=== PATIENT | male | born 1970 | race Caucasian/White ===

== ENCOUNTER 2023-08-30 12:10 | Inpatient (IN) ==
--- NOTE | 2023-08-30 12:20 | ED Triage Note ---
Date of Service August 30, 2023 History of Present Illness This patient was briefly evaluated while in triage. An abbreviated physical exam was performed. This patient is a 53-year-old Male who presents to the ED for evaluation of weakness, shortness of breath and chest pain last night. The patient reports that over the past 10 days, he has noticed the weakness and shortness of breath. He started to develop left-sided chest discomfort last evening. The patient reports that when he is exerting himself, the pain also seems to radiate into both shoulders and his neck. Upon further questioning, the patient has had some mild recent nausea, and diaphoresis at nighttime. Patient does take medicine for blood pressure. His father had a heart attack in his mid 50s. The patient reports that his last cholesterol check approximately 1.5 years ago was normal. The patient rates his discomfort a 5 out of 10. Physical Exam CONSTITUTIONAL: Healthy and well nourished. Patient does not appear in any acute distress. HEENT: No scleral icterus or conjunctival injection. NECK: Full active range of motion without discomfort. No JVD or carotid bruits. RESPIRATORY: Clear to auscultation bilaterally with no wheezing, crackles, rhonchi or stridor. CARDIOVASCULAR: Regular rate and rhythm with no murmurs, rubs or gallops. INTEGUMENTARY: No rash or other significant dermatologic conditions noted. HEMATOLOGIC: No ecchymosis or petechiae. PSYCHIATRIC: Positive affect. Initial orders for labs and / or imaging were placed and patient was placed in the waiting area until a bed is available. Please see further documentation for the full ED course.
[2023-08-30] MEDS ORDERED: SODIUM CHLORIDE 0.9% 1,000 ML IV ONE (12:25)
--- NOTE | 2023-08-30 12:28 | Emergency Department Note ---
Impression & Plan Anemia ADMIT ED Provider Note HPI: History obtained from patient The patient is a 53-year-old gentleman who presents emergency department with a chief complaint of shortness of breath with exertion. Patient states the symptoms seem to have been occurring more frequently over just the past 10 days. Patient tells me that he has been having some fatigue, he also describes nonspecific chest "tightness" that occurs at times and spontaneously resolves. Chest tightness is not associated with exertion and he did experience this last night. On arrival here to the ED the patient is hypertensive at 159/90, heart rate is 107, patient is saturating well on room air, denies any current chest pain or tightness, denies any abdominal pain, denies any current nausea. ROS: - Per HPI Differential Diagnosis: Acute CHF exacerbation with exertional dyspnea, ACS, pulmonary embolism, symptomatic anemia, amongst other potential pathologies. *Outpatient medications and allergy history reviewed. *Pertinent external medical records reviewed - PE: General: Alert HEENT: Normocephalic, trachea midline Eyes: Extraocular eye movement is intact, no scleral erythema Pulmonary: Clear to auscultation bilaterally, no wheezing Cardio: Regular rate and rhythm GI: Abdomen is soft to palpation, rectal examination performed with RN at the bedside shows evidence of external hemorrhoids without gross bleeding, occult stool testing is : No suprapubic tenderness MSK: No evidence of trauma or malformation of the extremities, no edema Skin: No evidence of rash Neuro: Alert, no focal deficits Psychiatric: Cooperative 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 Lab work shows no leukocytosis, hemoglobin is noted to be low at 6.6, MCV is 69.5, platelet count is normal, D-dimer is elevated at 1680, CMP shows mild hyponatremia at 131, potassium 3.4, troponin is elevated at 357. Patient denies any chest pain, EKG shows sinus tachycardia without any acute ischemic changes per my interpretation. Low suspicion for ACS. Chest x-ray does not show any evidence of acute process. Given low hemoglobin, occult stool testing was performed and is positive. Patient states he has a history of internal hemorrhoids. This could possibly be the source of his low hemoglobin, also in consideration would be iron deficiency given that the patient has had microcytic anemia and tells me in the past he was on iron supplementation for anemia. CT angiography of the chest was obtained given elevated D-dimer, this does not show any evidence of pulmonary embolism. Patient denies any abdominal pain and his abdomen is soft and nontender on my exam, no indication for CT imaging at this time. Patient was consented for 2 units packed red blood cells, I suspect that his troponin is elevated secondary to symptomatic anemia/demand ischemia. I discussed the patient's presentation with the on-call midlevel provider for [facility], Diamond Lanier PA-C, and the patient was placed for admission in stable condition to the service of Dr. Christie. Consultants/Discussions held with other healthcare providers: -Hospitalist service, Dr. Christie Disposition discussion held by myself with: - Patient * CRITICAL CARE TIME: ( 47 ) minutes -Management and stabilization of patient with symptomatic anemia with hemoglobin less than 7.0 requiring packed red blood cell transfusion in the ED, time spent at the bedside, interpretation of diagnostic studies, discussion with other healthcare providers and arrangement of admission Diagnosis: 1. Symptomatic anemia, acute, microcytic 2. Exertional dyspnea, acute 3. Elevated high-sensitivity troponin level, acute 4. Elevated D-dimer 5. Hyponatremia, acute Disposition: Admission Miguel Ro DO Emergency Medicine Past Med/Surg History Medical History (Updated 08/30/23 @ 17:34 by Miguel Ro DO) Gout MDD (major depressive episode), single episode, severe, no psychosis Alcoholism FERNANDO (generalized anxiety disorder) HTN (hypertension) Surgical History (Updated 08/30/23 @ 16:20 by Rosita Lanier PA-C) No pertinent past surgical history Family History (Updated 08/30/23 @ 16:20 by Rosita Lanier PA-C) Father Coronary heart disease Mother Thyroid disorder Social History (Updated 08/30/23 @ 17:12 by Rosita Lanier PA-C) Smoking Status: Former smoker Tobacco Type: Smokeless Tobacco (Dip or Chew) Hx Alcohol Use: Yes (35-45 standard drinks per week) Alcohol type: beer, wine and hard liquor Hx Substance Use: Yes Prescribed Medications: Marijuana Preferred Language: Indonesian Feels Safe at Home: Yes Allergies Allergies Allergy/AdvReac Type Severity Reaction Status Date / Time No Known Allergies Allergy Unverified 08/30/23 13:49 Home Meds Home Medications Medication Instructions Recorded Confirmed citalopram 40 mg tablet 40 mg PO QAM 08/30/23 08/30/23 hydrochlorothiazide 25 mg tablet 25 mg PO QAM 08/30/23 08/30/23 ibuprofen 200 mg tablet (Advil) 200 mg PO Q6H PRN Pain 08/30/23 08/30/23 lisinopril 40 mg tablet 40 mg PO QAM 08/30/23 08/30/23 Results & Data (ED) Vital Signs Vital Signs - 24 hr 08/30/23 12:14 08/30/23 12:32 08/30/23 12:32 Temperature 36.6 C Temperature Source Temporal Artery Scan Pulse Rate 107 H 93 H Pulse Rate [Apical] 93 H Pulse Rhythm Pulse Strength Respiratory Rate 22 18 Respiratory Effort / Characteristics Non-Labored Respiratory Depth Normal Blood Pressure 159/90 H Blood Pressure [Left Arm] 147/78 H Blood Pressure Mean 113 Blood Pressure Mean [Left Arm] 101 Pulse Oximetry 100 96 Oxygen Delivery Method Room Air Sepsis Recent Fever Within 48 Hours No Sepsis New/Unexplained Change in Mental Status N/A Sepsis Action Taken by Nursing No Action Required 08/30/23 12:32 08/30/23 13:01 08/30/23 14:03 Temperature Temperature Source Pulse Rate 95 H Pulse Rate [Apical] 92 H 86 Pulse Rhythm Pulse Strength Respiratory Rate 18 18 Respiratory Effort / Characteristics Non-Labored Respiratory Depth Normal Blood Pressure Blood Pressure [Left Arm] 122/66 138/86 Blood Pressure Mean Blood Pressure Mean [Left Arm] 84 103 Pulse Oximetry 97 Oxygen Delivery Method Room Air Room Air Sepsis Recent Fever Within 48 Hours Sepsis New/Unexplained Change in Mental Status Sepsis Action Taken by Nursing 08/30/23 15:32 08/30/23 15:54 08/30/23 16:09 Temperature 36.9 C 36.9 C 36.8 C Temperature Source Oral Oral Oral Pulse Rate 87 88 91 H Pulse Rate [Apical] Pulse Rhythm Pulse Strength Respiratory Rate 18 16 14 Respiratory Effort / Characteristics Respiratory Depth Blood Pressure 137/77 139/72 126/73 Blood Pressure [Left Arm] Blood Pressure Mean 97 94 90 Blood Pressure Mean [Left Arm] Pulse Oximetry 100 100 100 Oxygen Delivery Method Sepsis Recent Fever Within 48 Hours Sepsis New/Unexplained Change in Mental Status Sepsis Action Taken by Nursing 08/30/23 16:31 08/30/23 16:39 Temperature 36.9 C Temperature Source Oral Pulse Rate 96 H 93 H Pulse Rate [Apical] Pulse Rhythm Regular Pulse Strength Normal Respiratory Rate 18 Respiratory Effort / Characteristics Respiratory Depth Blood Pressure 165/83 H Blood Pressure [Left Arm] Blood Pressure Mean 110 Blood Pressure Mean [Left Arm] Pulse Oximetry 100 Oxygen Delivery Method Sepsis Recent Fever Within 48 Hours Sepsis New/Unexplained Change in Mental Status Sepsis Action Taken by Nursing Laboratory Data 08/30/23 12:29 08/30/23 12:30 Lab Results 08/30/23 08/30/23 08/30/23 Range/Units 12:29 12:30 14:17 WBC 4.89 (4.8-10.8) K/ul RBC 3.21 L (4.70-6.10) M/uL Hgb 6.6 L* (14.0-18.0) g/dl Hct 22.3 L (42.0-52.0) % MCV 69.5 L (80.0-100.0) fL MCH 20.6 L (25.0-34.0) pg MCHC 29.6 L (32.0-36.0) g/dL RDW Std Deviation 40.9 (36.4-46.3) fL RDW Coeff of [place] 16.1 H (11.5-14.5) % Plt Count 304 (130-400) K/uL MPV 9.3 L (9.4-12.4) fL Immature Gran % (Auto) 0.4 % Neut % (Auto) 69.5 % Lymph % (Auto) 16.6 % Cata[place] % (Auto) 12.7 % Eos % (Auto) 0.6 % Baso % (Auto) 0.2 % Neut # (Auto) 3.40 (1.40-6.50) K/uL Lymph # (Auto) 0.81 L (1.20-3.40) K/uL Cata[place] # (Auto) 0.62 H (0.11-0.59) K/uL Eos # (Auto) 0.03 (0.00-0.50) K/uL Baso # (Auto) 0.01 (0.00-0.20) K/uL Immature Gran # (Auto) 0.02 (0.01-0.20) K/uL Polychromasia 2+ Microcytosis Present PT 11.4 (9.0-12.0) Seconds INR 1.0 (0.9-1.1) APTT 24.6 (21.0-31.0) Seconds PTT Ratio 0.9 D-Dimer 1680 H* (0-500) ug/L FEU Sodium 131 L (136-145) mmol/L Potassium 3.4 L (3.5-5.1) mmol/L Chloride 96 L (98-107) mmol/L Carbon Dioxide 26 (21-32) mmol/L Anion Gap 9 (3-11) BUN 12 (6-23) mg/dl Creatinine 0.89 (0.6-1.4) mg/dl Est Cr Clr Drug Dosing 103.4 ml/min Est GFR ( Amer) 113.9 ml/min Est GFR (Non-Af Amer) 98.3 ml/min BUN/Creatinine Ratio 13.5 (10-20) Glucose 104 H (70-99(Fasting)) mg/dl Calcium 9.8 (8.6-10.3) mg/dl Magnesium 2.0 (1.7-2.4) mg/dl Total Bilirubin 0.4 (0.2-1.0) mg/dl AST 26 (13-39) U/L ALT 55 H (7-52) U/L Alkaline Phosphatase 70 (34-104) U/L Troponin I High Sens 357.8 H* 380.6 H* (0-20) pg/ml B-Natriuretic Peptide 28 (0-100) pg/ml Total Protein 8.2 (6.0-8.3) gm/dl Albumin 4.8 (3.4-5.0) gm/dl Globulin 3.4 (2.5-4.0) gm/dl Albumin/Globulin Ratio 1.4 (0.9-2) Lipase 30 (11-82) U/L TSH 1.237 (0.300-4.500) uIu/ml Blood Type O Positive Blood Type Recheck Antibody Screen NEGATIVE Crossmatch See Detail 08/30/23 Range/Units 14:20 WBC (4.8-10.8) K/ul RBC (4.70-6.10) M/uL Hgb (14.0-18.0) g/dl Hct (42.0-52.0) % MCV (80.0-100.0) fL MCH (25.0-34.0) pg MCHC (32.0-36.0) g/dL RDW Std Deviation (36.4-46.3) fL RDW Coeff of Glenis (11.5-14.5) % Plt Count (130-400) K/uL MPV (9.4-12.4) fL Immature Gran % (Auto) % Neut % (Auto) % Lymph % (Auto) % [place] % (Auto) % Eos % (Auto) % Baso % (Auto) % Neut # (Auto) (1.40-6.50) K/uL Lymph # (Auto) (1.20-3.40) K/uL [place] # (Auto) (0.11-0.59) K/uL Eos # (Auto) (0.00-0.50) K/uL Baso # (Auto) (0.00-0.20) K/uL Immature Gran # (Auto) (0.01-0.20) K/uL Polychromasia Microcytosis PT (9.0-12.0) Seconds INR (0.9-1.1) APTT (21.0-31.0) Seconds PTT Ratio D-Dimer (0-500) ug/L FEU Sodium (136-145) mmol/L Potassium (3.5-5.1) mmol/L Chloride (98-107) mmol/L Carbon Dioxide (21-32) mmol/L Anion Gap (3-11) BUN (6-23) mg/dl Creatinine (0.6-1.4) mg/dl Est Cr Clr Drug Dosing ml/min Est GFR ( Amer) ml/min Est GFR (Non-Af Amer) ml/min BUN/Creatinine Ratio (10-20) Glucose (70-99(Fasting)) mg/dl Calcium (8.6-10.3) mg/dl Magnesium (1.7-2.4) mg/dl Total Bilirubin (0.2-1.0) mg/dl AST (13-39) U/L ALT (7-52) U/L Alkaline Phosphatase (34-104) U/L Troponin I High Sens (0-20) pg/ml B-Natriuretic Peptide (0-100) pg/ml Total Protein (6.0-8.3) gm/dl Albumin (3.4-5.0) gm/dl Globulin (2.5-4.0) gm/dl Albumin/Globulin Ratio (0.9-2) Lipase (11-82) U/L TSH (0.300-4.500) uIu/ml Blood Type Blood Type Recheck O Positive Antibody Screen Crossmatch Administered Medications Pantoprazole Sodium 40 mg/ (Dextrose) 100 mls @ 20 mls/hr IV Q5H NIKKIE Stop: 09/29/23 15:59 Last Admin: 08/30/23 17:02 Dose: 8 mg/hr, 20 mls/hr Documented By: RAMIN Discontinued Medications Sodium Chloride (Nss) 1,000 mls @ 999 mls/hr IV .Q1H1M ONE Stop: 08/30/23 13:25 Last Infusion: 08/30/23 13:30 Dose: Infused Documented By: Admin: 08/30/23 12:31 Dose: 999 mls/hr Documented By: FARRAH Pantoprazole Sodium 80 mg/ (Dextrose) 120 mls @ 400 mls/hr IV NOW ONE Stop: 08/30/23 15:51 Last Infusion: 08/30/23 16:57 Dose: Infused Documented By: Admin: 08/30/23 16:29 Dose: 400 mls/hr Documented By: RAMIN Ioversol (Optiray 320 500ml) 110 ml IV ONCE ONE Stop: 08/30/23 15:11 Last Admin: 08/30/23 15:10 Dose: 110 ml Documented By: MIGDALIA Imaging Data Radiologist's Impression: Chest X-Ray 08/30/23 12:18 XR chest 1V portable HISTORY: Atypical chest pain. COMPARISON: None. FINDINGS: The lungs are clear. Cardiac silhouette is normal in size. No pleural effusions. No pneumothorax. IMPRESSION: No acute process. ACT 112: Negative or not required by law. Electronically signed by: Pablo Waddell M.D. 08/30/2023 1:22 PM Chest CTA 08/30/23 13:28 CHEST CTA for PULMONARY ARTERIES CT DOSE: 911.62 mGy.cm HISTORY: Atypical chest pain. TECHNIQUE: Multiaxial CT images of the chest were performed following the intravenous administration of contrast to evaluate the pulmonary arteries. 3D/Maximal intensity projection images were also obtained. Sagittal and coronal reformations were also reviewed. A dose lowering technique was utilized adhering to the principles of ALARA. COMPARISON STUDY: None. FINDINGS: Normal caliber thoracic aorta with no evidence for a dissection. The heart is mildly enlarged. No pleural or pericardial effusions. Coronary artery calcifications are noted. No filling defects within the pulmonary arteries to suggest a pulmonary embolus. The thyroid gland. Limited views of the upper abdomen demonstrate a normal liver, spleen, and adrenal glands. Normal esophagus. No mediastinal or hilar lymphadenopathy. No acute fractures within the chest. The central airways are patent. No pneumothorax. There is a 5 mm subpleural nodule within the left lower lobe on image 75. There is a 4 mm nodule within the left lower lobe on image 60. There is a 6 mm subpleural nodule within the right lower lobe on image 87. IMPRESSION: 1. No evidence for a pulmonary embolus. 2. Mild cardiomegaly. 3. A few subcentimeter indeterminate pulmonary nodules within the lower lobes with the largest on the right measuring 6 mm. Please refer to below summary of Fleischner criteria recommendations for follow- up of incidental CT nodules (Kiran Kirk, Guidelines for management of small pulmonary nodules detected on CT scans: A statement from the Fleischner Society, Radiology 237: [phone].) SOLID NODULES Solitary nodule size: <6 mm * Low risk patients: no follow-up needed * high risk patients: optional CT at 12 months Solitary nodule size: 6-8 mm * Low risk patients: follow-up at 6-12 months, then consider further follow-up at 18-24 months * high risk patients: initial follow-up CT at 6-12 months and then at 18-24 months if no change Solitary nodule size: >8 mm * either low or high risk patients - consider follow-up CT at 3 months, and/or CT-PET, and/or biopsy Multiple nodules size: <6 mm * Low risk patients: no routine follow-up * high risk patients: optional CT at 12 months Multiple nodules size: 6-8 mm * Low risk patients: follow-up at 3-6 months, then consider further follow-up at 18-24 months * high risk patients: follow-up at 3-6 months, then at 18-24 months if no change Multiple nodules size: >8 mm * Low risk patients: follow-up at 3-6 months, then consider further follow-up at 18-24 months * high risk patients: follow-up at 3-6 months, then at 18-24 months if no change Note: newly detected indeterminate nodule in persons 35 years of age or older. * Low risk patients: minimal or absent history of smoking and/or other known risk factors * high risk patients: history of smoking or of other known risk factors (e.g. first degree relative with lung cancer, or exposure to asbestos, radon, uranium) * if a nodule up to 8 mm is partly solid or is ground glass further follow-up is required after 24 months to exclude possible slow growing adenocarcinoma (JOSE ELIAS) SUBSOLID NODULES Solitary pure ground-glass nodule * nodule size <6 mm - no CT follow-up required * nodule size >=6 mm - follow-up CT at 6-12 months, then every 2 years until 5 years Solitary part-solid nodule * nodule size <6 mm - no CT follow-up required * nodule size >=6 mm - follow-up CT at 3-6 months. If unchanged, and solid component remains <6 mm, then annual follow-up for 5 years Multiple subsolid nodules * nodule size <6 mm - follow-up CT at 3-6 months, consider further follow-up at 2 and 4 years if stable * nodule size >=6 mm - follow-up CT at 3-6 months, subsequent management based on the most suspicious nodule(s) ACT 112: Positive. There are findings on this exam that require communication between the performing entity and the patient following Patient Test Result Information Act ([place] Act 112) guidelines. Electronically signed by: Pablo Waddell M.D. 08/30/2023 3:51 PM Discharge Plan Visit Data Chief Complaint: Cardiac Assessment Stated Complaint: TIGHTNESS IN CHEST/SHOULDERS/ARMS, SOB, DIZZY ED Provider: Bialas,Miguel A. Discharge Problem: Anemia Forms Stand Alone Forms: My [facility] Prescriptions Prescriptions: No Action citalopram 40 mg tablet 40 mg PO QAM ibuprofen [Advil] 200 mg Tablet 200 mg PO Q6H PRN (Reason: Pain) hydrochlorothiazide 25 mg tablet 25 mg PO QAM lisinopril 40 mg tablet 40 mg PO QAM Referrals Referrals: PCP,NO [Physician] - Discharge Problem: Anemia Qualifiers: Anemia type: unspecified type Qualified Code(s): D64.9 - Anemia, unspecified
[2023-08-30 13:12] LABS: Hematocrit (blood only) 22.3 % (42.0-52.0); Hemoglobin 6.6 g/dl (14.0-18.0); Mean Corpuscular Hemoglobin 20.6 pg (25.0-34.0); Mean Corpuscular Hgb Conc 29.6 g/dL (32.0-36.0); Mean Corpuscular Volume 69.5 fL (80.0-100.0); Mean Platelet Volume 9.3 fL (9.4-12.4); Platelet Count 304 K/uL (130-400); RDW Coefficient of Variation 16.1 % (11.5-14.5); RDW Standard Deviation 40.9 fL (36.4-46.3); Red Blood Count 3.21 M/uL (4.70-6.10); White Blood Count 4.89 K/ul (4.8-10.8)
[2023-08-30 13:15] LABS: Albumin Globulin Ratio 1.4 (0.9-2); Albumin Level 4.8 gm/dl (3.4-5.0); BUN Creatinine Ratio 13.5 (10-20); Bilirubin,Total 0.4 mg/dl (0.2-1.0); Calcium 9.8 mg/dl (8.6-10.3); Creatinine Clr Calc Pharmacy 103.4 ml/min; Est GFR (African American) 113.9 ml/min; Est GFR (Non-African American) 98.3 ml/min; Globulin 3.4 gm/dl (2.5-4.0); Potassium 3.4 mmol/L (3.5-5.1); Total Protein 8.2 gm/dl (6.0-8.3)
[2023-08-30 13:17] LABS: Partial Thromboplastin Ratio 0.9; Partial Thromboplastin Time 24.6 Seconds (21.0-31.0); Prothrombin Time 11.4 Seconds (9.0-12.0)
[2023-08-30 13:22] LABS: D Dimer 1680 ug/L FEU (0-500)
[2023-08-30 13:23] LABS: Troponin I High Sensitivity 357.8 pg/ml (0-20)
--- NOTE | 2023-08-30 13:24 | XRay Report ---
XR chest 1V portable HISTORY: Atypical chest pain. COMPARISON: None. FINDINGS: The lungs are clear. Cardiac silhouette is normal in size. No pleural effusions. No pneumot horax. IMPRESSION: No acute process. ACT 112: Negative or not required by law. Electronically signed by: Pablo Waddell M.D. 08/30/2023 1:22 PM
[2023-08-30] MEDS ORDERED: SODIUM CHLORIDE 0.9% 250 ML IV PRN (13:26)
[2023-08-30 13:29] LABS: Thyroid Stimulating Hormone 1.237 uIu/ml (0.300-4.500)
[2023-08-30 13:31] LABS: Basophils # (auto) 0.01 K/uL (0.00-0.20); Basophils % (auto) 0.2 %; Eosinophils # (auto) 0.03 K/uL (0.00-0.50); Eosinophils % (auto) 0.6 %; Immature Granulocytes # (auto) 0.02 K/uL (0.01-0.20); Immature Granulocytes % (auto) 0.4 %; Lymphocytes # (auto) 0.81 K/uL (1.20-3.40); Lymphocytes % (auto) 16.6 %; Microcytosis Present; Monocytes # (auto) 0.62 K/uL (0.11-0.59); Monocytes % (auto) 12.7 %; Neutrophils % (auto) 69.5 %; Polychromasia 2+
[2023-08-30] MEDS ORDERED: OPTIRAY 320 500ml IV ONE (15:10)
--- NOTE | 2023-08-30 15:28 | Electrocardiogram Report ---
Test Reason : Blood Pressure : / mmHG Vent. Rate : 108 BPM Atrial Rate : 108 BPM P-R Int : 182 ms QRS Dur : 102 ms QT Int : 344 ms P-R-T Axes : 064 040 044 degrees QTc Int : 460 ms Sinus tachycardia Minimal voltage criteria for LVH, may be normal variant ( [place] product ) Borderline ECG No previous ECGs available Confirmed by Marco Antonio Schneider ([id number]) on 08/30/2023 3:27:56 PM Referred By: REFERRED SELF Confirmed By:Marco Antonio Schneider
[2023-08-30] MEDS ORDERED: PANTOprazole 80 MG in DEXTROSE 5% 100 ML IV ONE (15:34)
[2023-08-30] MEDS ORDERED: PANTOPRAZOLE BOLUS/DRIP IV STA (15:34)
--- NOTE | 2023-08-30 15:54 | CT Scan Report ---
CHEST CTA for PULMONARY ARTERIES CT DOSE: 911.62 mGy.cm HISTORY: Atypical chest pain. TECHNIQUE: Multiaxial CT images of the chest were performed following the intravenous administration of contrast to evaluate the pulmonary arteries. 3D/Maximal intensity projection images were also obta ined. Sagittal and coronal reformations were also reviewed. A dose lowering technique was utilized a dhering to the principles of ALARA. COMPARISON STUDY: None. FINDINGS: Normal caliber thoracic aorta with no evidence for a dissection. The heart is mildly enlarg ed. No pleural or pericardial effusions. Coronary artery calcifications are noted. No filling defects within the pulmonary arteries to suggest a pulmonary embolus. The thyroid gland. Limited views of th e upper abdomen demonstrate a normal liver, spleen, and adrenal glands. Normal esophagus. No mediasti nal or hilar lymphadenopathy. No acute fractures within the chest. The central airways are patent. No pneumothorax. There is a 5 mm subpleural nodule within the left lower lobe on image 75. There is a 4 mm nodule within the left lower lobe on image 60. There is a 6 mm subpleural nodule within the right lower lobe on image 87. IMPRESSION: 1. No evidence for a pulmonary embolus. 2. Mild cardiomegaly. 3. A few subcentimeter indeterminate pulmonary nodules within the lower lobes with the largest on the right measuring 6 mm. Please refer to below summary of Fleischner criteria recommendations for follow-up of incidental CT n odules (Kiran Kirk, Guidelines for management of small pulmonary nodules detected on CT scans: A sta tement from the Fleischner Society, Radiology 237: [phone].) SOLID NODULES Solitary nodule size: <6 mm * Low risk patients: no follow-up needed * high risk patients: optional CT at 12 months Solitary nodule size: 6-8 mm * Low risk patients: follow-up at 6-12 months, then consider further follow-up at 18-24 months * high risk patients: initial follow-up CT at 6-12 months and then at 18-24 months if no change Solitary nodule size: >8 mm * either low or high risk patients - consider follow-up CT at 3 months, and/or CT-PET, and/or biopsy Multiple nodules size: <6 mm * Low risk patients: no routine follow-up * high risk patients: optional CT at 12 months Multiple nodules size: 6-8 mm * Low risk patients: follow-up at 3-6 months, then consider further follow-up at 18-24 months * high risk patients: follow-up at 3-6 months, then at 18-24 months if no change Multiple nodules size: >8 mm * Low risk patients: follow-up at 3-6 months, then consider further follow-up at 18-24 months * high risk patients: follow-up at 3-6 months, then at 18-24 months if no change Note: newly detected indeterminate nodule in persons 35 years of age or older. * Low risk patients: minimal or absent history of smoking and/or other known risk factors * high risk patients: history of smoking or of other known risk factors (e.g. first degree relative with lung cancer, or exposure to asbestos, radon, uranium) * if a nodule up to 8 mm is partly solid or is ground glass further follow-up is required after 24 m onths to exclude possible slow growing adenocarcinoma (JOSE ELIAS) SUBSOLID NODULES Solitary pure ground-glass nodule * nodule size <6 mm - no CT follow-up required * nodule size >=6 mm - follow-up CT at 6-12 months, then every 2 years until 5 years Solitary part-solid nodule * nodule size <6 mm - no CT follow-up required * nodule size >=6 mm - follow-up CT at 3-6 months. If unchanged, and solid component remains <6 mm, then annual follow-up for 5 years Multiple subsolid nodules * nodule size <6 mm - follow-up CT at 3-6 months, consider further follow-up at 2 and 4 years if sta ble * nodule size >=6 mm - follow-up CT at 3-6 months, subsequent management based on the most suspiciou s nodule(s) ACT 112: Positive. There are findings on this exam that require communication between the performing entity and the patient following Patient Test Result Information Act ([place] Act 112) guidelines. Electronically signed by: Pablo Waddell M.D. 08/30/2023 3:51 PM
--- NOTE | 2023-08-30 16:23 | History & Physical Report ---
Date of Service August 30, 2023 Assessment & Plan (1) Anemia: (2) GI bleed: (3) HTN (hypertension): (4) FERNANDO (generalized anxiety disorder): (5) Alcoholism: (6) Gout: Plan: Severe anemia, hemoglobin 6.6 GI bleed -Admit to telemetry -2 units PRBCs ordered and transfusing at bedside -H&H every 6 hours, next check at 2000 -IV Protonix drip ordered, continue -GI consulted, Dr. Cruz -Patient reports history of colonoscopy 5 years ago with internal hemorrhoids, no other acute findings, will keep the patient n.p.o. for possible EGD versus C- scope pending GI recommendations -Continue NSS at 80 mL/h after blood complete - Hgb on outpt EPIC review in Oct 2021 was hgb 12, hct 38.9, MCV 78.3 -Anemia panel not ordered as he is actively being transfused and would not be accurate - consider testing as outpatient Elevated Troponin, suspect demand Ischemia HTN -EKG without any acute changes, no chest pain, heaviness, low suspicion for ACS -Troponin of 357 -->380 -Transfuse as above, trend troponin with 1999 labs - Hold antihypertensives including HCTZ and lisinopril Alcoholism -Alcohol cessation encouraged at bedside, we will place CIOK's protocol to evaluate for withdrawal symptoms, pt denies dependence, cessation encouraged at bedside -Start thiamine, folic acid, and MVI tomorrow morning - LFTs outpt EPIC reviewed from Oct 2021 and were AST 67, Albumin 5.2, ALT 108, Alk phos 66 -- today are ok, noted Hx Smoking/ Tobacco Use - CT chest negative for PE, but shows multiple subcentimeter nodules bilaterally, largest in RLL 6 mm nodule present, patient should have outpatient follow-up CT of the chest in 6 to 12 months Hyponatremia -Possibly acutely hyponatremic with alcohol use such as beer potomania -NSS at 80 mL/h while n.p.o. Hypokalemia -Replace IV Anxiety/depression -Continue citalopram, consider uptitration during admission with pt reports of significant anxiety -Patient is a high risk for major depression/suicidal risk being a white male, self medicating with alcohol,using marijuana and nicotine products, unemployed, lives alone. -Low threshold for psych evaluation for medication adjustments and recommendations during hospital stay -Patient does not follow with outpatient psych/therapy but would recommend she does such Gout -History of using allopurinol, patient will need new prescription upon discharge -Can use Voltaren gel topically, history of heavy NSAID use orally is likely contributing to GI bleed -Warm compress DVT PPx: teds, scds Lines 2 PIV CODE: Full code FEN/GI: N.p.o. Dispo: From home, likely to remain in the hospital x 2 days History of Present Illness Chief Complaint: Weakness, shortness of breath Primary Care Provider: Raul Crawford DO This is a 53-year-old male with PMHx of HTN, gout, FERNANDO, MDD, BPH, former smoker, current tobacco snuff use, alcohol use, marijuana use who presents to the hospital with acute onset of shortness of breath, weakness and dyspnea on exertion x10-day timeframe. He admits to having BRBPR seen in stool for the past 10 days. Patient has a known history of internal hemorrhoids from colonoscopy done about 5 years ago and reports that he would intermittently have some spots on toilet paper, however over the last 10 days has noticed increasing bright red blood in the bowl sometimes filling it, + dark red clots, denies any black tarry stools. He denies nausea or vomiting. Patient admits to drinking significant amount of alcohol up to 6 beers daily, on weekends has upwards of 12/day. Previously he used to drink more. Denies withdrawals symptoms or shaking, denies waking up and feeling the need to have a drink. He states this helps his anxiety in the evening and to fall asleep. pt had stopped drinking for 5 days in a row when he was noticing the blood in his stool. He drank ~6 beers last night. Blood work reveals anemia with hemoglobin of 6.6, HCT 22.2, MCV 69, hyponatremia 131, hypokalemia of 3.4. Pt notes hx of gout with a flare 2 months ago, had been taking ibuprofen up to 16 tabs a day at that time due to pain. In the past month has chronically been using ~600-800 mg daily as he no longer has Rx for allopurinol since being unemployed and without insurance. Social Hx: Drinks alcohol light beer (Rowan Light) 6 daily, and on weekends drinks 12 beers daily. No liquor use or wine use. Pt admits to using more in the past. Admits to using marijuana about once per month via edibles and occasionally smokes marijuana socially, about 1 year ago he had been smoking it daily. Chews nicotine pouches ( goes through 1 can every 2 days) without the tobacco component. Pt reports significant anxiety and since COV, had job instability [id number]. 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 Pt has been on citalopram about 15 years ago, and 12 years ago stopped taking, had a major depressive episode and started taking it again, and has been maintained on the same dose since then. Allergies Allergy/AdvReac Type Severity Reaction Status Date / Time No Known Allergies Allergy Unverified 08/30/23 13:49 Home Medications Medication Instructions Recorded Confirmed Type citalopram 40 mg tablet 40 mg PO QAM 08/30/23 08/30/23 History hydrochlorothiazide 25 mg tablet 25 mg PO QAM 08/30/23 08/30/23 History ibuprofen 200 mg tablet (Advil) 200 mg PO Q6H PRN Pain 08/30/23 08/30/23 History lisinopril 40 mg tablet 40 mg PO QAM 08/30/23 08/30/23 History Past Med/Surg History Medical History (Updated 08/30/23 @ 17:34 by Miguel Ro DO) Gout MDD (major depressive episode), single episode, severe, no psychosis Alcoholism FERNANDO (generalized anxiety disorder) HTN (hypertension) Surgical History (Updated 08/30/23 @ 16:20 by Rosita Lanier PA-C) No pertinent past surgical history Family History (Updated 08/30/23 @ 16:20 by Rosita Lanier PA-C) Father Coronary heart disease Mother Thyroid disorder Social History (Updated 08/30/23 @ 17:12 by Rosita Lanier PA-C) Smoking Status: Former smoker Tobacco Type: Smokeless Tobacco (Dip or Chew) Hx Alcohol Use: Yes (35-45 standard drinks per week) Alcohol type: beer, wine and hard liquor Hx Substance Use: Yes Prescribed Medications: Marijuana Preferred Language: Belarusian Feels Safe at Home: Yes Review of Systems Review of Systems: Constitutional: No fever, sweats or chills Eyes: No diplopia, no worsening or blurred vision ENT: normal hearing, no trouble swallowing Respiratory: No cough, sputum, + dyspnea on exertion Cardiovascular: No chest pain, tightness or palpitations Abdomen: As per HPI. Musculoskeletal: No joint pain, calf pain, swelling Neurologic: No weakness, numbness/tingling, or balance problems Psychiatric: No anxiety or depression Skin: No rash or itch Physical Exam Physical Exam: General: awake, alert, no apparent distress, white male Head: Normocephalic, atraumatic ENT: PERRL, EOMI, no pharyngeal exudate, mucous membranes moist Chest: Clear to auscultation, on room air, no adventitious breath sounds Cardiac: Regular rate and rhythm, heart rate in the mid 90s at bedside, no murmur, no JVD, normal peripheral pulses, good capillary refill Abdominal: NABS x 4 quadrants, soft, nondistended, mild tenderness in LLQ to palpation, no rebound or guarding Extremities: Normal inspection, no peripheral edema or erythema, calfs nontender to palpation Psych: Normal mood and affect Neuro: AAO x 3, strength intact bilaterally and rated 5/5, no motor deficits, speech is clear, no peripheral sensory deficits Results & Data Results & Data Vital Signs (Past 12 Hours) Vital Signs Temp Pulse Pulse Resp BP BP Pulse Ox 08/30/23 15:54 36.9 C 88 16 139/72 100 08/30/23 15:32 36.9 C 87 18 137/77 100 08/30/23 14:03 86 18 138/86 08/30/23 13:01 92 H 18 122/66 97 08/30/23 12:32 95 H 08/30/23 12:32 93 H 08/30/23 12:32 93 H 18 147/78 H 96 08/30/23 12:14 36.6 C 107 H 22 159/90 H 100 O2 Del Method 08/30/23 15:54 08/30/23 15:32 08/30/23 14:03 Room Air 08/30/23 13:01 Room Air 08/30/23 12:32 08/30/23 12:32 08/30/23 12:32 08/30/23 12:14 Room Air Laboratory Results 08/30/23 08/30/23 08/30/23 14:20 14:17 12:30 WBC RBC Hgb Hct MCV MCH MCHC RDW Std Deviation RDW Coeff of [place] Plt Count MPV Immature Gran % (Auto) Neut % (Auto) Lymph % (Auto) [place] % (Auto) Eos % (Auto) Baso % (Auto) Neut # (Auto) Lymph # (Auto) [place] # (Auto) Eos # (Auto) Baso # (Auto) Immature Gran # (Auto) Polychromasia Microcytosis PT INR APTT PTT Ratio D-Dimer Sodium 131 L Potassium 3.4 L Chloride 96 L Carbon Dioxide 26 Anion Gap 9 BUN 12 Creatinine 0.89 Est Cr Clr Drug Dosing 103.4 Est GFR ( Amer) 113.9 Est GFR (Non-Af Amer) 98.3 BUN/Creatinine Ratio 13.5 Glucose 104 H Calcium 9.8 Magnesium 2.0 Total Bilirubin 0.4 AST 26 ALT 55 H Alkaline Phosphatase 70 Troponin I High Sens 380.6 H* 357.8 H* B-Natriuretic Peptide Total Protein 8.2 Albumin 4.8 Globulin 3.4 Albumin/Globulin Ratio 1.4 Lipase 30 TSH 1.237 Blood Type O Positive Blood Type Recheck O Positive Antibody Screen NEGATIVE Crossmatch See Detail 08/30/23 12:29 WBC 4.89 RBC 3.21 L Hgb 6.6 L* Hct 22.3 L MCV 69.5 L MCH 20.6 L MCHC 29.6 L RDW Std Deviation 40.9 RDW Coeff of [place] 16.1 H Plt Count 304 MPV 9.3 L Immature Gran % (Auto) 0.4 Neut % (Auto) 69.5 Lymph % (Auto) 16.6 [place] % (Auto) 12.7 Eos % (Auto) 0.6 Baso % (Auto) 0.2 Neut # (Auto) 3.40 Lymph # (Auto) 0.81 L [place] # (Auto) 0.62 H Eos # (Auto) 0.03 Baso # (Auto) 0.01 Immature Gran # (Auto) 0.02 Polychromasia 2+ Microcytosis Present PT 11.4 INR 1.0 APTT 24.6 PTT Ratio 0.9 D-Dimer 1680 H* Sodium Potassium Chloride Carbon Dioxide Anion Gap BUN Creatinine Est Cr Clr Drug Dosing Est GFR ( Amer) Est GFR (Non-Af Amer) BUN/Creatinine Ratio Glucose Calcium Magnesium Total Bilirubin AST ALT Alkaline Phosphatase Troponin I High Sens B-Natriuretic Peptide 28 Total Protein Albumin Globulin Albumin/Globulin Ratio Lipase TSH Blood Type Blood Type Recheck Antibody Screen Crossmatch Diagnostic Findings Chest X-Ray 08/30/23 12:18 XR chest 1V portable HISTORY: Atypical chest pain. COMPARISON: None. FINDINGS: The lungs are clear. Cardiac silhouette is normal in size. No pleural effusions. No pneumothorax. IMPRESSION: No acute process. ACT 112: Negative or not required by law. Electronically signed by: Pablo Waddell M.D. 08/30/2023 1:22 PM Chest CTA 08/30/23 13:28 CHEST CTA for PULMONARY ARTERIES CT DOSE: 911.62 mGy.cm HISTORY: Atypical chest pain. TECHNIQUE: Multiaxial CT images of the chest were performed following the intravenous administration of contrast to evaluate the pulmonary arteries. 3D/Maximal intensity projection images were also obtained. Sagittal and coronal reformations were also reviewed. A dose lowering technique was utilized adhering to the principles of ALARA. COMPARISON STUDY: None. FINDINGS: Normal caliber thoracic aorta with no evidence for a dissection. The heart is mildly enlarged. No pleural or pericardial effusions. Coronary artery calcifications are noted. No filling defects within the pulmonary arteries to suggest a pulmonary embolus. The thyroid gland. Limited views of the upper abdomen demonstrate a normal liver, spleen, and adrenal glands. Normal esophagus. No mediastinal or hilar lymphadenopathy. No acute fractures within the chest. The central airways are patent. No pneumothorax. There is a 5 mm subpleural nodule within the left lower lobe on image 75. There is a 4 mm nodule within the left lower lobe on image 60. There is a 6 mm subpleural nodule within the right lower lobe on image 87. IMPRESSION: 1. No evidence for a pulmonary embolus. 2. Mild cardiomegaly. 3. A few subcentimeter indeterminate pulmonary nodules within the lower lobes with the largest on the right measuring 6 mm. Please refer to below summary of Fleischner criteria recommendations for follow- up of incidental CT nodules (Kiran Kirk, Guidelines for management of small pulmonary nodules detected on CT scans: A statement from the Fleischner Society, Radiology 237: [phone].) SOLID NODULES Solitary nodule size: <6 mm * Low risk patients: no follow-up needed * high risk patients: optional CT at 12 months Solitary nodule size: 6-8 mm * Low risk patients: follow-up at 6-12 months, then consider further follow-up at 18-24 months * high risk patients: initial follow-up CT at 6-12 months and then at 18-24 months if no change Solitary nodule size: >8 mm * either low or high risk patients - consider follow-up CT at 3 months, and/or CT-PET, and/or biopsy Multiple nodules size: <6 mm * Low risk patients: no routine follow-up * high risk patients: optional CT at 12 months Multiple nodules size: 6-8 mm * Low risk patients: follow-up at 3-6 months, then consider further follow-up at 18-24 months * high risk patients: follow-up at 3-6 months, then at 18-24 months if no change Multiple nodules size: >8 mm * Low risk patients: follow-up at 3-6 months, then consider further follow-up at 18-24 months * high risk patients: follow-up at 3-6 months, then at 18-24 months if no change Note: newly detected indeterminate nodule in persons 35 years of age or older. * Low risk patients: minimal or absent history of smoking and/or other known r isk factors * high risk patients: history of smoking or of other known risk factors (e.g. first degree relative with lung cancer, or exposure to asbestos, radon, uranium) * if a nodule up to 8 mm is partly solid or is ground glass further follow-up is required after 24 months to exclude possible slow growing adenocarcinoma (JOSE ELIAS) SUBSOLID NODULES Solitary pure ground-glass nodule * nodule size <6 mm - no CT follow-up required * nodule size >=6 mm - follow-up CT at 6-12 months, then every 2 years until 5 years Solitary part-solid nodule * nodule size <6 mm - no CT follow-up required * nodule size >=6 mm - follow-up CT at 3-6 months. If unchanged, and solid component remains <6 mm, then annual follow-up for 5 years Multiple subsolid nodules * nodule size <6 mm - follow-up CT at 3-6 months, consider further follow-up at 2 and 4 years if stable * nodule size >=6 mm - follow-up CT at 3-6 months, subsequent management based on the most suspicious nodule(s) ACT 112: Positive. There are findings on this exam that require communication between the performing entity and the patient following Patient Test Result Information Act ([place] Act 112) guidelines. Electronically signed by: Pablo Waddell M.D. 08/30/2023 3:51 PM Code Status & VTE Plan Code Status Full code - discussed with pt at bedside Supervising Physician Co-Signing Physician Notes Attending addendum: The patient was seen and examined in emergency room He has been complaining of shortness of breath with exertion and black/tarry stool for the last 10 days Denies any abdominal pain, nausea or vomiting He drinks about 6 beers a day and over the weekends more than that for many years On examination No apparent distress at rest Hemodynamically stable Chestclear to auscultate bilaterally HeartS1, S2 regular Abdomenbenign Extremities1+ edema bilaterally His labs, EKG and imaging studies reviewed Symptomatic anemia with GI bleed with history of alcoholism We will get blood transfusion, PPI drip and GI consultation Agree with assessment plan as outlined above by Rosita Christie
[2023-08-30] MEDS: PANTOprazole 40 MG in DEXTROSE 5% MINI-B 100 ML IV SCH ×2 (17:02→21:24)
[2023-08-30] MEDS ORDERED: ACETAMINOPHEN 325 MG TAB PO PRN (20:10)
[2023-08-30] MEDS ORDERED: ONDANSETRON INJ 2 MG/ML 2 ML VIAL IV PRN (20:10)
[2023-08-30] MEDS: SODIUM CHLORIDE 0.9% 1,000 ML IV SCH (21:16)
[2023-08-30] MEDS: POTASSIUM CHLORIDE / WTR 10 MEQ/100 ML PLCT IV SCH ×2 (21:18→23:52)
[2023-08-30] MEDS: DICLOFENAC SOD 1% GEL 100 GM TUBE EXT SCH (21:19)
[2023-08-30 23:00] LABS: Hematocrit (blood only) 23.9 % (42.0-52.0); Hemoglobin 7.5 g/dl (14.0-18.0)
[2023-08-31] MEDS: POTASSIUM CHLORIDE / WTR 10 MEQ/100 ML PLCT IV SCH (00:51)
[2023-08-31 02:29] LABS: Hematocrit (blood only) 22.4 % (42.0-52.0); Hemoglobin 7.2 g/dl (14.0-18.0); Mean Corpuscular Hemoglobin 22.9 pg (25.0-34.0); Mean Corpuscular Hgb Conc 32.1 g/dL (32.0-36.0); Mean Corpuscular Volume 71.3 fL (80.0-100.0); Mean Platelet Volume 9.3 fL (9.4-12.4); Platelet Count 230 K/uL (130-400); RDW Coefficient of Variation 18.9 % (11.5-14.5); RDW Standard Deviation 48.8 fL (36.4-46.3); Red Blood Count 3.14 M/uL (4.70-6.10)
[2023-08-31] MEDS: PANTOprazole 40 MG in DEXTROSE 5% MINI-B 100 ML IV SCH ×3 (02:31→14:52)
[2023-08-31 02:45] LABS: Calcium 8.8 mg/dl (8.6-10.3); Potassium 3.9 mmol/L (3.5-5.1)
[2023-08-31 02:51] LABS: Chol HDL Ratio 3.7 (0-5); Creatinine Clr Calc Pharmacy 110.2 ml/min; Est GFR (African American) 113.4 ml/min; Est GFR (Non-African American) 97.9 ml/min; Phosphorus 3.1 mg/dl (2.5-4.9)
[2023-08-31] MEDS: DICLOFENAC SOD 1% GEL 100 GM TUBE EXT SCH ×2 (05:07→19:39)
[2023-08-31] MEDS: FOLIC ACID 1 MG TAB PO SCH (08:09)
[2023-08-31] MEDS: THIAMINE HCL 100 MG TAB PO SCH (08:09)
[2023-08-31] MEDS: SODIUM CHLORIDE 0.9% 1,000 ML IV SCH (08:09)
[2023-08-31 08:22] LABS: Estimated Average Glucose 126 mg/dl
[2023-08-31] MEDS ORDERED: SODIUM CHLORIDE 0.9% 250 ML IV PRN (08:44)
[2023-08-31] MEDS ORDERED: Ativan PO Alcohol Withdrawal--Active Protocol PO PRN (08:58)
[2023-08-31] MEDS ORDERED: LORazepam 1 MG TAB PO PRN ×3 (08:58)
[2023-08-31] MEDS: MULTIVITAMIN TAB PO SCH (09:27)
[2023-08-31] MEDS ORDERED: METOCLOPRAMIDE HCL INJ 5 MG/ML 2 ML VIAL IV STA (09:56)
[2023-08-31] MEDS: traMADol HCL 50 MG TABLET PO PRN ×3 (09:58→23:53)
--- NOTE | 2023-08-31 10:07 | Gastrointestinal Consultation ---
Date of Consultation August 31, 2023 Assessment & Plan (1) Alcoholism: (2) Melena: (3) ABLA (acute blood loss anemia): Continue Protonix gtt NPO Reglan 10 mg IV x 1 now EGD today History of Present Illness Reason for Consultation: GIB Attending Physician: Wilver Horan MD History of Present Illness Garcia Aguilera is a 53 yo CM who presented to the ER last night with complaints of a 10 day history of black tarry stools. He states that due to some gout issues he has been using ibuprofen excessively. He states that he also drinks approximately 6 beers per day. Upon arrival to the ER his H/H was 6.6 and 22.3. He was started on a protonix gtt, admitted, and transfused 2 u PRBC. His H/H this AM showed a slight rise in Hgb to 7.2. He currently denies SOB, but had complained of this prior to his arrival. He states at present that he has no fevers, chills, nausea, vomiting, diarrhea, hematemesis or further melena. He denies any further complaints. Allergies Allergy/AdvReac Type Severity Reaction Status Date / Time No Known Allergies Allergy Unverified 08/30/23 13:49 Home Medications Medication Instructions Recorded Confirmed Type citalopram 40 mg tablet 40 mg PO QAM 08/30/23 08/30/23 History hydrochlorothiazide 25 mg tablet 25 mg PO QAM 08/30/23 08/30/23 History ibuprofen 200 mg tablet (Advil) 200 mg PO Q6H PRN Pain 08/30/23 08/30/23 History lisinopril 40 mg tablet 40 mg PO QAM 08/30/23 08/30/23 History Patient History Medical History Gout MDD (major depressive episode), single episode, severe, no psychosis Alcoholism FERNANDO (generalized anxiety disorder) HTN (hypertension) Surgical History No pertinent past surgical history Family History Father Coronary heart disease Mother Thyroid disorder Social History Smoking Status: Never smoker Tobacco Type: Smokeless Tobacco (Dip or Chew) Second Hand Exposure: No; Do You Dip or Chew Tobacco: No; Tobacco Cessation Education Requested by Patient: No Hx Alcohol Use: Yes Alcohol type: beer Hx Substance Use: No Preferred Language: Turkish Communication Ability: Effective Director Of Broadcast Required: No Beliefs That Will Affect Care: None Current Living Situation: Alone Other Information That Helps Us Care for You: No Feels Safe at Home: Yes Safety Concerns: Feels Safe At This Time Assistive Devices: CPAP Review of Systems Review of Systems: All systems reviewed & are unremarkable except as noted in Subjective Physical Exam Constitutional: WD/WN, vitals as above Respiratory: normal respiratory effort, lungs clear to auscultation Cardiovascular: RRR, no murmur, no edema Gastrointestinal (Abdomen): normal bowel sounds, soft, nontender, no hepatosplenomegaly Skin: + pallor Psychiatric: A+Ox3, euthymic affect Results & Data Vital Signs (Past 12 Hours) Vital Signs Temp Pulse Pulse Resp BP BP Pulse Ox 08/31/23 08:56 72 08/31/23 07:57 37.2 C 71 18 122/75 99 08/31/23 04:00 36.8 C 74 18 122/77 99 08/31/23 02:55 19 08/31/23 00:41 84 22 97 08/30/23 22:05 95 H 08/30/23 22:00 37.1 C 89 18 152/82 H 98 O2 Del Method FiO2 08/31/23 08:56 08/31/23 07:57 CPAP 08/31/23 04:00 CPAP 08/31/23 02:55 21 08/31/23 00:41 21 08/30/23 22:05 08/30/23 22:00 Room Air PG Care Time/CCT Total # of Minutes Spent Total Time Spent with Patient: Total time spent is greater than 50% in coordination of care (as documented) at patient's floor/unit and/or counseling patient: Coding Level of Care Code 07534 IN/OBS CONSULT LVL 5,80M Diagnoses Alcoholism F10.20 Melena K92.1 ABLA (acute blood loss anemia) D62
--- NOTE | 2023-08-31 10:35 | Anesthesiology Consultation ---
Date of Service August 31, 2023 Assessment & Plan Chart Review Chart Review: Acceptable Risk for Surgery and Patient NOT seen in Pre Admission Testing Consults Requested none History Surgery Operation Date: 08/31/23 12:00 Proposed Procedures p Esophagogastroduodenoscopy - Michael Martell Case, DO Height/Weight Height: 5 ft 8 in Weight: 100.2 kg Allergies Allergy/AdvReac Type Severity Reaction Status Date / Time No Known Allergies Allergy Unverified 08/30/23 13:49 Medications Home Medications Medication Instructions Recorded Confirmed Last Taken citalopram 40 mg tablet 40 mg PO QAM 08/30/23 08/30/23 08/30/23 hydrochlorothiazide 25 mg tablet 25 mg PO QAM 08/30/23 08/30/23 08/30/23 ibuprofen 200 mg tablet (Advil) 200 mg PO Q6H PRN Pain 08/30/23 08/30/23 08/29/23 lisinopril 40 mg tablet 40 mg PO QAM 08/30/23 08/30/23 08/30/23 Active Medications Generic Name Dose Route Start Last Admin Trade Name Freq PRN Reason Stop Dose Admin Diclofenac Sodium 2 gm 08/30/23 21:00 08/31/23 05:07 Diclofenac Sod 1% Gel 100 Gm Tube EXT 09/29/23 20:59 2 gm BID NIKKIE Administration Protocol Folic Acid 1 mg 08/31/23 09:00 08/31/23 08:09 Folic Acid 1 Mg Tab PO 09/30/23 08:59 1 mg QAM NIKKIE Administration Pantoprazole Sodium 40 mg/ 100 mls @ 20 mls/hr 08/30/23 16:00 08/31/23 06:26 Dextrose IV 09/29/23 15:59 8 mg/hr Q5H NIKKIE 20 mls/hr Administration 8 MG/HR Sodium Chloride 1,000 mls @ 80 mls/hr 08/30/23 20:00 08/31/23 08:09 Nss IV 09/29/23 19:59 80 mls/hr .[id number] NIKKIE Administration Multivitamins 1 tab 08/31/23 09:00 08/31/23 09:27 Multivitamin Tab PO 09/30/23 08:59 1 tab QAM NIKKIE Administration Thiamine HCl 100 mg 08/31/23 09:00 08/31/23 08:09 Thiamine Hcl 100 Mg Tab PO 09/30/23 08:59 100 mg QAM NIKKIE Administration Tramadol HCl 50 mg 08/31/23 09:32 08/31/23 09:58 Tramadol Hcl 50 Mg Tablet PO 09/30/23 09:31 50 mg Q4H PRN Administration Pain Past Medical History Medical History Gout MDD (major depressive episode), single episode, severe, no psychosis Alcoholism FERNANDO (generalized anxiety disorder) HTN (hypertension) Past Family History Family History Father Coronary heart disease Mother Thyroid disorder Past Surgical History Surgical History No pertinent past surgical history Social History Smoking Status: Never smoker Do You Dip or Chew Tobacco: No Hx Alcohol Use: Yes Alcohol type: beer alcohol intake frequency: 3 or more drinks per day Hx Substance Use: No substance use type: does not use Physical Exam Vital Signs Last Vital Signs Temp 37.2 C 08/31/23 07:57 Pulse 72 08/31/23 08:56 Resp 18 08/31/23 07:57 BP 122/75 08/31/23 07:57 Pulse Ox 99 08/31/23 07:57 O2 Del Method CPAP 08/31/23 07:57 FiO2 21 08/31/23 02:55 Constitutional WD/WN, vitals as above Respiratory normal respiratory effort, lungs clear to auscultation Cardiovascular RRR, no murmur, no edema Gastrointestinal (Abdomen) normal bowel sounds, soft, nontender, no hepatosplenomegaly Skin + pallor Psychiatric A+Ox3, euthymic affect Testing Laboratory Results 08/31/23 02:17 08/31/23 02:17 PT 11.4 Seconds (9.0-12.0) 08/30/23 12:29 INR 1.0 (0.9-1.1) 08/30/23 12:29 APTT 24.6 Seconds (21.0-31.0) 08/30/23 12:29 Hemoglobin A1c 6.0 % (4.5-5.6) H 08/31/23 02:17 Blood Type O Positive 08/30/23 14:17 Antibody Screen NEGATIVE 08/30/23 14:17
--- NOTE | 2023-08-31 11:39 | XRay Report ---
LEFT KNEE 3 VIEWS CLINICAL HISTORY: Left knee pain. FINDINGS: AP, lateral, and sunrise views of the left knee are obtained. No prior studies are availabl e for comparison at the time of dictation. The skeletal structures are well mineralized. No fracture is seen. The joint spaces are maintained. There is a small joint effusion. A calcified fabella is inc identally noted. IMPRESSION: Joint effusion with no acute bony abnormality identified. Electronically signed by: Jacky Pichardo M.D. 08/31/2023 11:37 AM
[2023-08-31 12:30] LABS: Hematocrit (blood only) 23.7 % (42.0-52.0); Hemoglobin 7.5 g/dl (14.0-18.0)
[2023-08-31] MEDS ORDERED: fentaNYL citrate PF 100 MCG/2 ML VIAL ONE (12:41)
[2023-08-31] MEDS ORDERED: MIDAZOLAM HCL 1 MG/ML 2ML VIAL ONE (12:41)
[2023-08-31] MEDS ORDERED: LIDOCAINE 2% 2 ML VIAL/AMP(20MG/ML) INFIL ONE (12:59)
[2023-08-31] MEDS ORDERED: SUCCINYLCHOLINE CHLORIDE 20 MG/ML 10 ML VIAL IV ONE (12:59)
[2023-08-31] MEDS ORDERED: ONDANSETRON INJ 2 MG/ML 2 ML VIAL ONE (12:59)
[2023-08-31] MEDS ORDERED: DEXAMETHASONE SOD INJ 4 MG/ML VIAL ONE (12:59)
[2023-08-31] MEDS ORDERED: PROPOFOL IV EMULSION 10 MG/ML 20 ML VIAL IV ONE (12:59)
--- NOTE | 2023-08-31 13:07 | GI REPORT ---
Patient Name: Garcia Aguilera Procedure Date: 08/31/2023 11:42 AM Date of : 1970 Admit Type: Inpatient Age: 53 Gender: Male Attending MD: Michael Bernabe DO, Procedure: Upper GI endoscopy Providers: Michael Bernabe DO Referring MD: Wilver Horan MD Indications: Acute post hemorrhagic anemia, Melena Medicines: Monitored Anesthesia Care Complications: No immediate complications. Estimated Blood Loss: Estimated blood loss: none. Procedure: Pre-Anesthesia Assessment: - Prior to the procedure, a History and Physical was performed, and patient medications and allergies were reviewed. The patient's tolerance of previous anesthesia was also reviewed. The risks and benefits of the procedure and the sedation options and risks were discussed with the patient. All questions were answered, and informed consent was obtained. Prior Anticoagulants: The patient has taken no anticoagulant or antiplatelet agents. ASA Grade Assessment: III - A patient with severe systemic disease. After reviewing the risks and benefits, the patient was deemed in satisfactory condition to undergo the procedure. After obtaining informed consent, the endoscope was passed under direct vision. Throughout the procedure, the patient's blood pressure, pulse, and oxygen saturations were monitored continuously. The Endoscope was introduced through the mouth, and advanced to the second part of duodenum. The upper GI endoscopy was accomplished without difficulty. The patient tolerated the procedure well. Findings: The examined esophagus was normal. Six non-bleeding cratered gastric ulcers with no stigmata of bleeding were found in the gastric antrum. The largest lesion was 10 mm in largest dimension. Biopsies were taken with a cold forceps for histology. The examined duodenum was normal. Impression: - Normal esophagus. - Non-bleeding gastric ulcers with no stigmata of bleeding. Biopsied. - Normal examined duodenum. Recommendation: - [facility]. - Advance diet as tolerated. - Use Protonix (pantoprazole) 40 mg PO BID. - Await pathology results. Michael Bernabe DO 08/31/2023 1:06:28 PM This report has been signed electronically. Note Initiated On: 08/31/2023 11:42 AM Number of Addenda: 0 I attest to the content of the Intraoperative Record and orders documented therein, exceptions below {[id number]}
[2023-08-31 13:11] LABS: Ferritin 4.9 ng/ml (8-388)
[2023-08-31] MEDS: COLCHICINE 0.6 MG TAB PO SCH (15:08)
--- NOTE | 2023-08-31 15:52 | Hospitalist Progress Note ---
Date of Service August 31, 2023 Assessment & Plan (1) Anemia: (2) GI bleed: (3) HTN (hypertension): (4) FERNANDO (generalized anxiety disorder): (5) Alcoholism: (6) Gout: Plan: Acute GI bleed/Melena Symptomatic acute blood loss anemia H/O internal hemorrhoids --S/P EGD:Normal esophagus. Non-bleeding gastric ulcers with no stigmata of bleeding. Biopsied. Normal examined duodenum. --S/P 2 units PRBCs -- Advance diet as tolerated Continue Protonix 40 mg p.o. twice daily Follow-up pathology results Appreciate GI input Monitor H&H and transfuse PRBCs as needed Elevated D-dimer Pulmonary nodules --CTA:No evidence for a pulmonary embolus. Mild cardiomegaly. A few subcentimeter indeterminate pulmonary nodules within the lower lobes with the largest on the right measuring 6 mm. Further evaluation of pulmonary nodules as outpatient Check venous Doppler Elevated Troponin, suspect demand Ischemia EKG personally reviewed, no signs of acute ischemia Denies chest pain Troponin trended down Iron deficiency anemia Vitamin B12 deficiency Reviewed anemia work-up Will start on iron and Vit B12 supplements as able Hyponatremia Likely multifactorial--dehydration, alcohol use Sodium 131 Monitor Hypokalemia Replete electrolytes as needed Acute gout L knee X ray:Joint effusion with no acute bony abnormality identified. 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 Anxiety/depression -Continue citalopram DVT Px: Teds, scds CODE STATUS: Full code Admission and Anticipated Discharge Date Admission Date: August 30, 2023 Subjective Patient is seen and examined at bedside States having left knee pain No bleeding issues today Less dyspnea on exertion today Denies any chest pain, dizziness, nausea, vomiting, abdominal pain No other complaints Plan for EGD today Review of Systems Review of Systems: All systems reviewed & are unremarkable except as noted in Subjective Physical Exam Physical Exam: Physical Exam: Vitals signs as noted above General Appearance:Moderately built and nourished, no apparent distress Head: normocephalic, Atraumatic Eyes: normal inspection, EOMI Neck: supple, Trachea midline Respiratory/Chest: Normal breath sounds, CTA, No accessory muscle use Cardiovascular: S1, S2, No murmur Abdomen/GI:Soft, Non tender, Bowel sounds present Extremities/Musculoskeletal:normal inspection, no edema, Left Knee decreased ROM due to pain Neurologic/Psych:AAOX3, grossly no focal neurological deficits Skin: normal color, warm Results & Data Results & Data Vital Signs (Past 12 Hours) Vital Signs Temp Pulse Pulse Resp BP Pulse Ox O2 Del Method 08/31/23 15:14 78 08/31/23 14:34 37.1 C 83 16 130/73 99 Room Air 08/31/23 14:10 82 22 132/79 98 Room Air 08/31/23 13:55 36.1 C L 79 17 119/72 96 Room Air 08/31/23 13:45 74 19 137/81 95 Room Air 08/31/23 13:35 75 19 140/78 94 Room Air 08/31/23 13:25 75 14 127/89 100 Oxymask 08/31/23 13:15 36.4 C L 81 21 139/79 100 Oxymask 08/31/23 11:41 36.8 C 71 18 125/73 97 Room Air 08/31/23 08:56 72 08/31/23 07:57 37.2 C 71 18 122/75 99 CPAP 08/31/23 04:00 36.8 C 74 18 122/77 99 CPAP O2 Flow Rate 08/31/23 15:14 08/31/23 14:34 08/31/23 14:10 08/31/23 13:55 08/31/23 13:45 08/31/23 13:35 08/31/23 13:25 3 08/31/23 13:15 6 08/31/23 11:41 08/31/23 08:56 08/31/23 07:57 08/31/23 04:00 Laboratory Results Short CBC 08/30/23 08/31/23 08/31/23 Range/Units 22:44 02:17 11:53 WBC 5.60 (4.8-10.8) K/ul Hgb 7.5 L 7.2 L 7.5 L (14.0-18.0) g/dl Hct 23.9 L 22.4 L 23.7 L (42.0-52.0) % Plt Count 230 (130-400) K/uL BMP 08/31/23 02:17 Sodium 131 L Potassium 3.9 Chloride 99 Carbon Dioxide 25 BUN 9 Creatinine 0.90 Glucose 102 H Calcium 8.8 (1) Anemia Anemia type: unspecified type Qualified Code(s): D64.9 - Anemia, unspecified
--- NOTE | 2023-08-31 16:05 | Anesthesiology Progress Note ---
Date of Service August 31, 2023 Anesthesia Post Procedure Vital Signs Vital Signs: Temp Pulse Pulse Resp BP BP BP 08/31/23 15:14 78 08/31/23 14:34 37.1 C 83 16 130/73 08/31/23 14:10 82 22 132/79 08/31/23 13:55 36.1 C L 79 17 119/72 08/31/23 13:45 74 19 137/81 08/31/23 13:35 75 19 140/78 08/31/23 13:25 75 14 127/89 08/31/23 13:15 36.4 C L 81 21 139/79 08/31/23 11:41 36.8 C 71 18 125/73 08/31/23 08:56 72 08/31/23 07:57 37.2 C 71 18 122/75 08/31/23 04:00 36.8 C 74 18 122/77 08/31/23 02:55 19 08/31/23 00:41 84 22 08/30/23 22:05 95 H 08/30/23 22:00 37.1 C 89 18 152/82 H 08/30/23 21:20 94 H 18 08/30/23 21:10 79 18 08/30/23 21:00 142/74 H 08/30/23 21:00 81 16 08/30/23 20:50 82 23 08/30/23 20:46 82 17 08/30/23 20:46 139/79 08/30/23 20:40 86 23 08/30/23 20:30 114/66 08/30/23 20:30 88 19 08/30/23 20:20 88 18 08/30/23 20:15 37.1 C 83 20 139/79 08/30/23 20:10 89 24 08/30/23 20:02 37.2 C 82 18 147/84 H 08/30/23 20:00 147/84 H 08/30/23 20:00 86 24 08/30/23 19:50 85 15 08/30/23 19:40 90 24 08/30/23 19:30 131/76 08/30/23 19:30 85 19 08/30/23 19:20 86 21 08/30/23 19:15 37.1 C 86 20 150/92 H 11/17/23 19:14 150/92 H 08/30/23 19:14 84 18 08/30/23 19:10 85 24 08/30/23 19:00 140/77 08/30/23 19:00 85 25 H 08/30/23 18:50 86 25 H 08/30/23 18:45 37.2 C 82 15 153/78 H 08/30/23 18:40 86 24 08/30/23 18:30 153/78 H 08/30/23 18:30 86 21 08/30/23 18:30 37.1 C 86 19 153/78 H 08/30/23 18:20 90 26 H 08/30/23 18:12 36.8 C 86 16 163/95 H 08/30/23 18:10 83 20 08/30/23 18:00 163/95 H 08/30/23 18:00 83 23 08/30/23 17:50 86 19 08/30/23 17:40 83 22 08/30/23 17:39 36.8 C 86 16 158/83 H 08/30/23 17:30 158/83 H 08/30/23 17:30 84 16 08/30/23 17:20 90 16 08/30/23 17:10 92 H 26 H 08/30/23 17:00 144/88 H 08/30/23 17:00 93 H 18 08/30/23 16:50 93 H 19 08/30/23 16:40 92 H 16 08/30/23 16:39 36.9 C 93 H 18 165/83 H 08/30/23 16:31 96 H 08/30/23 16:30 165/83 H 08/30/23 16:30 99 H 21 08/30/23 16:20 89 17 08/30/23 16:16 126/73 08/30/23 16:16 90 14 08/30/23 16:10 94 H 24 08/30/23 16:09 36.8 C 91 H 14 126/73 Pulse Ox O2 Del Method O2 Flow Rate FiO2 08/31/23 15:14 08/31/23 14:34 99 Room Air 08/31/23 14:10 98 Room Air 08/31/23 13:55 96 Room Air 08/31/23 13:45 95 Room Air 08/31/23 13:35 94 Room Air 08/31/23 13:25 100 Oxymask 3 08/31/23 13:15 100 Oxymask 6 08/31/23 11:41 97 Room Air 08/31/23 08:56 08/31/23 07:57 99 CPAP 08/31/23 04:00 99 CPAP 08/31/23 02:55 21 08/31/23 00:41 97 21 08/30/23 22:05 08/30/23 22:00 98 Room Air 08/30/23 21:20 99 08/30/23 21:10 98 08/30/23 21:00 08/30/23 21:00 99 08/30/23 20:50 99 08/30/23 20:46 99 08/30/23 20:46 08/30/23 20:40 98 08/30/23 20:30 08/30/23 20:30 99 08/30/23 20:20 98 08/30/23 20:15 100 08/30/23 20:10 98 08/30/23 20:02 98 08/30/23 20:00 08/30/23 20:00 100 08/30/23 19:50 100 08/30/23 19:40 100 08/30/23 19:30 08/30/23 19:30 99 08/30/23 19:20 99 08/30/23 19:15 99 08/30/23 19:14 08/30/23 19:14 100 08/30/23 19:10 99 08/30/23 19:00 08/30/23 19:00 100 08/30/23 18:50 98 08/30/23 18:45 99 08/30/23 18:40 100 08/30/23 18:30 08/30/23 18:30 99 08/30/23 18:30 99 08/30/23 18:20 99 08/30/23 18:12 98 08/30/23 18:10 98 08/30/23 18:00 08/30/23 18:00 98 08/30/23 17:50 98 08/30/23 17:40 100 08/30/23 17:39 99 08/30/23 17:30 08/30/23 17:30 98 08/30/23 17:20 98 08/30/23 17:10 100 08/30/23 17:00 08/30/23 17:00 100 08/30/23 16:50 98 08/30/23 16:40 100 08/30/23 16:39 100 08/30/23 16:31 08/30/23 16:30 08/30/23 16:30 100 08/30/23 16:20 08/30/23 16:16 08/30/23 16:16 100 08/30/23 16:10 99 08/30/23 16:09 100 Pain Intensity Left Knee: Pain Intensity: 7 Transfer of Care Handoff Completed per policy Notes Mental Status: alert / awake / arousable Patient Amnestic to Procedure: Yes Nausea / Vomiting: adequately controlled Pain: adequately controlled Airway Patency, RR, SpO2: stable & adequate BP & HR: stable & adequate Hydration State: stable & adequate Anesthetic Complications: no major complications apparent and Pt Satisfied with anesthetic care
[2023-08-31] MEDS ORDERED: IRON SUCROSE 300 MG in SODIUM CHLORIDE 0.9% 250 ML IV ONE (16:15)
[2023-08-31] MEDS: CYANOCOBALAMIN (B-12) 500 MCG TABLET PO SCH (17:13)
[2023-08-31] MEDS: COUGH DROP (SUGAR FREE) LOZ 24 LOZ/1 BOX BUCCAL PRN ×2 (17:13→23:05)
[2023-08-31] MEDS: PANTOprazole 40 MG TAB PO SCH (19:40)
[2023-08-31 20:26] LABS: Hematocrit (blood only) 23.8 % (42.0-52.0); Hemoglobin 7.3 g/dl (14.0-18.0)
[2023-09-01] MEDS: traMADol HCL 50 MG TABLET PO PRN ×3 (05:10→14:33)
[2023-09-01] MEDS: COUGH DROP (SUGAR FREE) LOZ 24 LOZ/1 BOX BUCCAL PRN (05:10)
[2023-09-01 08:06] LABS: Hematocrit (blood only) 21.8 % (42.0-52.0); Hemoglobin 6.8 g/dl (14.0-18.0); Mean Corpuscular Hemoglobin 22.6 pg (25.0-34.0); Mean Corpuscular Hgb Conc 31.2 g/dL (32.0-36.0); Mean Corpuscular Volume 72.4 fL (80.0-100.0); Mean Platelet Volume 9.9 fL (9.4-12.4); Nucleated RBC # (auto) 0.03 K/uL (0.00-0.12); Nucleated RBC % (auto) 0.6 %; Platelet Count 216 K/uL (130-400); RDW Coefficient of Variation 18.9 % (11.5-14.5); RDW Standard Deviation 49.4 fL (36.4-46.3); Red Blood Count 3.01 M/uL (4.70-6.10); White Blood Count 5.08 K/ul (4.8-10.8)
[2023-09-01] MEDS ORDERED: SODIUM CHLORIDE 0.9% 250 ML IV PRN (08:08)
[2023-09-01 08:18] LABS: BUN Creatinine Ratio 7.8 (10-20); Calcium 8.9 mg/dl (8.6-10.3); Creatinine Clr Calc Pharmacy 110.2 ml/min; Est GFR (African American) 113.4 ml/min; Est GFR (Non-African American) 97.9 ml/min; Magnesium 2.1 mg/dl (1.7-2.4); Potassium 3.9 mmol/L (3.5-5.1)
[2023-09-01] MEDS: FOLIC ACID 1 MG TAB PO SCH (08:26)
[2023-09-01] MEDS: COLCHICINE 0.6 MG TAB PO SCH (08:26)
[2023-09-01] MEDS: CITALOPRAM 40 MG TAB PO SCH (08:26)
[2023-09-01] MEDS: MULTIVITAMIN TAB PO SCH (08:26)
[2023-09-01] MEDS: THIAMINE HCL 100 MG TAB PO SCH (08:26)
[2023-09-01] MEDS: PANTOprazole 40 MG TAB PO SCH ×2 (08:26→20:27)
[2023-09-01] MEDS: CYANOCOBALAMIN (B-12) 500 MCG TABLET PO SCH (08:26)
[2023-09-01] MEDS: DICLOFENAC SOD 1% GEL 100 GM TUBE EXT SCH ×2 (08:27→20:27)
--- NOTE | 2023-09-01 13:11 | Gastroenterology Progress Note ---
Date of Service September 01, 2023 Assessment & Plan (1) GI bleed: (2) ABLA (acute blood loss anemia): (3) Gastric ulcer: Plan: Continue Pantoprazole 40 mg by mouth BID for 8 weeks, then QAM thereafter Start Carafate 1 g by mouth QID AC and HS H. pylori biopsies pending Avoid NSAID's, OK to use Tylenol for pain control F/U in our office in 6 weeks. Admission and Anticipated Discharge Date Admission Date: August 30, 2023 Subjective Feeling better today, though H/H did drop overnight. He has not had any overt GI bleeding, and in fact, has had no BM's. He denies any fevers, chills, nausea, vomiting, diarrhea, hematemesis, melena or hematochezia. Physical Exam Constitutional: WD/WN, vitals as above Respiratory: normal respiratory effort, lungs clear to auscultation Cardiovascular: RRR, no murmur, no edema Gastrointestinal (Abdomen): normal bowel sounds, soft, nontender, no hepatosplenomegaly Skin: + pallor Psychiatric: A+Ox3, euthymic affect Results & Data Results & Data Vital Signs (Past 12 Hours) Vital Signs Temp Pulse Pulse Resp BP BP Pulse Ox 09/01/23 12:08 36.8 C 81 20 124/75 96 09/01/23 11:53 37.1 C 84 20 130/78 96 09/01/23 11:32 36.8 C 83 20 128/78 96 09/01/23 11:24 36.6 C 80 20 131/71 97 09/01/23 11:00 36.8 C 84 20 134/80 99 09/01/23 10:40 36.6 C 80 20 131/71 97 09/01/23 09:40 36.7 C 90 20 125/72 99 09/01/23 09:10 36.7 C 94 H 20 154/80 H 98 09/01/23 08:55 36.5 C 78 20 138/81 99 09/01/23 08:37 36.5 C 80 20 134/81 98 09/01/23 07:45 36.6 C 74 18 127/75 98 09/01/23 07:09 74 09/01/23 04:15 36.5 C 77 18 159/90 H 93 09/01/23 03:51 77 12 96 O2 Del Method FiO2 09/01/23 12:08 09/01/23 11:53 09/01/23 11:32 09/01/23 11:24 Room Air 09/01/23 11:00 09/01/23 10:40 09/01/23 09:40 09/01/23 09:10 09/01/23 08:55 09/01/23 08:37 09/01/23 07:45 CPAP 09/01/23 07:09 09/01/23 04:15 Room Air, CPAP 09/01/23 03:51 21 PG Care Time/CCT Total # of Minutes Spent Total Time Spent with Patient: Total time spent is greater than 50% in coordination of care (as documented) at patient's floor/unit and/or counseling patient: Coding Level of Care Code 77249 SUB INP/OBS CARE 3/50MIN Diagnoses GI bleed K92.2 ABLA (acute blood loss anemia) D62 Gastric ulcer K25.9
[2023-09-01] MEDS ORDERED: COLCHICINE 0.6 MG TAB PO ONE (14:39)
--- NOTE | 2023-09-01 16:01 | Hospitalist Progress Note ---
Date of Service September 01, 2023 Assessment & Plan (1) Anemia: (2) GI bleed: (3) HTN (hypertension): (4) FERNANDO (generalized anxiety disorder): (5) Alcoholism: (6) Gout: Plan: Acute GI bleed/Melena Symptomatic acute blood loss anemia H/O internal hemorrhoids --S/P EGD:Normal esophagus. Non-bleeding gastric ulcers with no stigmata of bleeding. Biopsied. Normal examined duodenum. --S/P 4 units PRBCs Continue Protonix 40 mg p.o. twice daily Follow-up pathology results for H pylori Appreciate GI input Monitor H&H and transfuse PRBCs as needed Advance to low fiber diet today Avoid NSAIDs Needs follow-up with GI in 6 weeks as outpatient Started on Carafate Elevated D-dimer Pulmonary nodules --CTA:No evidence for a pulmonary embolus. Mild cardiomegaly. A few subcentimeter indeterminate pulmonary nodules within the lower lobes with the largest on the right measuring 6 mm. Further evaluation of pulmonary nodules as outpatient Check venous Doppler--pending Elevated Troponin, suspect demand Ischemia EKG personally reviewed, no signs of acute ischemia Denies chest pain Troponin trended down Iron deficiency anemia Vitamin B12 deficiency Reviewed anemia work-up Will start on iron and Vit B12 supplements as able Hyponatremia Likely multifactorial--dehydration, alcohol use Sodium 135 today Monitor Hypokalemia Replete electrolytes as needed monitor Acute gout L knee X ray:Joint effusion with no acute bony abnormality identified. 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 Anxiety/depression -Continue citalopram DVT Px: Teds, scds Re: GI bleed, Anemia CODE STATUS: Full code Admission and Anticipated Discharge Date Admission Date: August 30, 2023 Subjective Patient is seen and examined at bedside No recurrence of bleeding today Discussed with GI today Still has left knee pain associated with some stiffness Denies any chest pain, dyspnea, dizziness, nausea, vomiting, abdominal pain No signs of alcohol withdrawal currently Review of Systems Review of Systems: All systems reviewed & are unremarkable except as noted in Subjective Physical Exam Physical Exam: Physical Exam: Vitals signs as noted above General Appearance:Moderately built and nourished, no apparent distress Head: normocephalic, Atraumatic Eyes: normal inspection, EOMI Neck: supple, Trachea midline Respiratory/Chest: Normal breath sounds, CTA, No accessory muscle use Cardiovascular: S1, S2, No murmur Abdomen/GI:Soft, Non tender, Bowel sounds present Extremities/Musculoskeletal:normal inspection, no edema, Left Knee decreased ROM due to pain Neurologic/Psych:AAOX3, grossly no focal neurological deficits Skin: normal color, warm Results & Data Results & Data Vital Signs (Past 12 Hours) Vital Signs Temp Pulse Pulse Resp BP BP Pulse Ox 09/01/23 14:54 84 09/01/23 14:17 36.8 C 81 20 124/75 96 09/01/23 12:08 36.8 C 81 20 124/75 96 09/01/23 11:53 37.1 C 84 20 130/78 96 09/01/23 11:32 36.8 C 83 20 128/78 96 09/01/23 11:24 36.6 C 80 20 131/71 97 09/01/23 11:00 36.8 C 84 20 134/80 99 09/01/23 10:40 36.6 C 80 20 131/71 97 09/01/23 09:40 36.7 C 90 20 125/72 99 09/01/23 09:10 36.7 C 94 H 20 154/80 H 98 09/01/23 08:55 36.5 C 78 20 138/81 99 09/01/23 08:37 36.5 C 80 20 134/81 98 09/01/23 07:45 36.6 C 74 18 127/75 98 09/01/23 07:09 74 09/01/23 04:15 36.5 C 77 18 159/90 H 93 O2 Del Method 09/01/23 14:54 09/01/23 14:17 09/01/23 12:08 09/01/23 11:53 09/01/23 11:32 09/01/23 11:24 Room Air 09/01/23 11:00 09/01/23 10:40 09/01/23 09:40 09/01/23 09:10 09/01/23 08:55 09/01/23 08:37 09/01/23 07:45 CPAP 09/01/23 07:09 09/01/23 04:15 Room Air, CPAP Laboratory Results Short CBC 08/31/23 09/01/23 Range/Units 20:07 07:02 WBC 5.08 (4.8-10.8) K/ul Hgb 7.3 L 6.8 L* (14.0-18.0) g/dl Hct 23.8 L 21.8 L (42.0-52.0) % Plt Count 216 (130-400) K/uL BMP 09/01/23 07:02 Sodium 135 L Potassium 3.9 Chloride 103 Carbon Dioxide 27 BUN 7 Creatinine 0.90 Glucose 97 Calcium 8.9 (1) Anemia Anemia type: unspecified type Qualified Code(s): D64.9 - Anemia, unspecified
[2023-09-01] MEDS: oxyCODONE/ACETAMINOPHEN 5mg/325mg TAB PO PRN ×2 (16:17→23:02)
[2023-09-01] MEDS: SUCRALFATE 1 GM TAB PO SCH ×2 (16:21→20:27)
--- NOTE | 2023-09-01 17:11 | Ultrasound Report ---
BILATERAL LOWER EXTREMITY VENOUS DOPPLER CLINICAL HISTORY: Elevated D dimer R/O DVT COMPARISON STUDY: No previous studies for comparison. TECHNIQUE: Sonography of the deep venous system of the bilateral lower extremities was performed. Co mpression and augmentation were evaluated. FINDINGS: The bilateral common femoral, superficial femoral and popliteal veins were compressible. A ugmentation was normal. Flow was shown within the deep calf vessels. IMPRESSION: No evidence of deep venous thrombus within the bilateral lower extremities. ACT 112: Negative or not required by law. Electronically signed by: Leonardo Nunn M.D. 09/01/2023 5:09 PM
[2023-09-01 20:25] LABS: Hematocrit (blood only) 27.1 % (42.0-52.0); Hemoglobin 8.4 g/dl (14.0-18.0)
[2023-09-02] MEDS: oxyCODONE/ACETAMINOPHEN 5mg/325mg TAB PO PRN ×4 (05:03→21:05)
[2023-09-02 07:30] LABS: Hematocrit (blood only) 27.4 % (42.0-52.0); Hemoglobin 8.5 g/dl (14.0-18.0); Mean Corpuscular Hemoglobin 23.5 pg (25.0-34.0); Mean Corpuscular Volume 75.7 fL (80.0-100.0); Nucleated RBC # (auto) 0.02 K/uL (0.00-0.12); Nucleated RBC % (auto) 0.3 %; Platelet Count 246 K/uL (130-400); RDW Coefficient of Variation 19.9 % (11.5-14.5); RDW Standard Deviation 54.4 fL (36.4-46.3); Red Blood Count 3.62 M/uL (4.70-6.10)
[2023-09-02 08:17] LABS: Calcium 8.9 mg/dl (8.6-10.3)
[2023-09-02 08:23] LABS: BUN Creatinine Ratio 7.8 (10-20); Creatinine Clr Calc Pharmacy 97.2 ml/min; Est GFR (African American) 97.5 ml/min; Est GFR (Non-African American) 84.1 ml/min
[2023-09-02] MEDS: SUCRALFATE 1 GM TAB PO SCH ×4 (08:36→19:58)
[2023-09-02] MEDS: FOLIC ACID 1 MG TAB PO SCH (08:36)
[2023-09-02] MEDS: THIAMINE HCL 100 MG TAB PO SCH (08:36)
[2023-09-02] MEDS: MULTIVITAMIN TAB PO SCH (08:36)
[2023-09-02] MEDS: CYANOCOBALAMIN (B-12) 500 MCG TABLET PO SCH (08:36)
[2023-09-02] MEDS: PANTOprazole 40 MG TAB PO SCH ×2 (08:36→19:58)
[2023-09-02] MEDS: CITALOPRAM 40 MG TAB PO SCH (08:36)
[2023-09-02] MEDS: COLCHICINE 0.6 MG TAB PO SCH (08:36)
[2023-09-02] MEDS: DICLOFENAC SOD 1% GEL 100 GM TUBE EXT SCH ×2 (08:36→19:59)
--- NOTE | 2023-09-02 09:40 | Gastroenterology Progress Note ---
Date of Service September 02, 2023 Assessment & Plan (1) GI bleed: (2) ABLA (acute blood loss anemia): (3) Gastric ulcer: Plan: Continue Pantoprazole 40 mg by mouth BID for 8 weeks, then daily thereafter. Continue Carafate 1 g by mouth QID AC and HS. H. pylori biopsies pending. Avoid NSAID's, OK to use Tylenol for pain control. F/U in our office in 6 weeks. GI sign off. Please do not hesitate to contact us again if needed. Admission and Anticipated Discharge Date Admission Date: August 30, 2023 Supervising Physician Co-Signing Physician Notes Agree with RICHARD García as above Abd: Soft, NT, ND, +BS Continue current therapy and supportive care H/H improved, no overt GI bleeding Gastric bx pending Subjective Patient reports feeling well from a GI standpoint this morning. He states he did have a bowel movement this morning that was not bloody or melanotic. H&H is stable. No abdominal pain, nausea or vomiting. Tolerating diet. Histology is pending. His only complaint today is of left knee pain and lower extremity edema. Review of Systems Constitutional: no fever and no chills Gastrointestinal: as per Subjective / HPI Physical Exam Constitutional: WD/WN, vitals as above Respiratory: normal respiratory effort, lungs clear to auscultation Cardiovascular: RRR, no murmur, no edema Gastrointestinal (Abdomen): normal bowel sounds, soft, nontender, no hepatosplenomegaly Psychiatric: A+Ox3, euthymic affect Results & Data Results & Data Vital Signs (Past 12 Hours) Vital Signs Temp Pulse Pulse Resp BP Pulse Ox O2 Del Method 09/02/23 07:36 36.7 C 77 16 143/90 H 95 CPAP 09/02/23 07:16 78 09/02/23 04:00 36.8 C 79 18 143/79 H 96 CPAP 09/02/23 03:16 79 18 95 09/02/23 00:00 36.9 C 79 18 136/80 95 Room Air 09/01/23 23:53 84 22 97 09/01/23 22:01 82 FiO2 09/02/23 07:36 09/02/23 07:16 09/02/23 04:00 09/02/23 03:16 09/02/23 00:00 09/01/23 23:53 21 09/01/23 22:01 Diagnostic Findings Abnormal lab results 08/30/23 09/01/23 09/02/23 Range/Units 14:17 20:01 06:16 RBC 3.62 L (4.70-6.10) M/uL Hgb 8.4 L 8.5 L (14.0-18.0) g/dl Hct 27.1 L 27.4 L (42.0-52.0) % MCV 75.7 L (80.0-100.0) fL MCH 23.5 L (25.0-34.0) pg MCHC 31.0 L (32.0-36.0) g/dL RDW Std Deviation 54.4 H (36.4-46.3) fL RDW Coeff of [place] 19.9 H (11.5-14.5) % Sodium 135 L (136-145) mmol/L BUN/Creatinine Ratio 7.8 L (10-20) Crossmatch See Detail PG Care Time/CCT Total # of Minutes Spent Total Time Spent with Patient: Total time spent is greater than 50% in coordination of care (as documented) at patient's floor/unit and/or counseling patient: Coding Level of Care Code 26037 SUB INP/OBS CARE 3/50MIN Diagnoses GI bleed K92.2 ABLA (acute blood loss anemia) D62 Gastric ulcer K25.9
[2023-09-02] MEDS ORDERED: IRON SUCROSE 200 MG in 0.9 % SODIUM CHLORIDE 100 ML IV ONE (10:00)
[2023-09-02] MEDS: COUGH DROP (SUGAR FREE) LOZ 24 LOZ/1 BOX BUCCAL PRN (13:14)
[2023-09-02] MEDS ORDERED: ETHYL CHLORIDE AER SPR 100 ML CAN EXT ONE (13:48)
--- NOTE | 2023-09-02 15:41 | Hospitalist Progress Note ---
Date of Service September 02, 2023 Assessment & Plan (1) Anemia: (2) GI bleed: (3) HTN (hypertension): (4) FERNANDO (generalized anxiety disorder): (5) Alcoholism: (6) Gout: Plan: Acute GI bleed/Melena Symptomatic acute blood loss anemia H/O internal hemorrhoids --S/P EGD:Normal esophagus. Non-bleeding gastric ulcers with no stigmata of bleeding. Biopsied. Normal examined duodenum. --S/P 4 units PRBCs Continue Protonix 40 mg p.o. twice daily Follow-up pathology results for H pylori--pending Appreciate GI input Monitor H&H and transfuse PRBCs as needed Avoid NSAIDs Needs follow-up with GI in 6 weeks as outpatient Continue Carafate Hb stable Currently no bleeding issues Acute gout Ambulatory dysfunction L knee X ray:Joint effusion with no acute bony abnormality identified. No improvement despite using colchicine Consulted orthopedics PT OT prior to discharge Elevated D-dimer Pulmonary nodules --CTA:No evidence for a pulmonary embolus. Mild cardiomegaly. A few subcentimeter indeterminate pulmonary nodules within the lower lobes with the largest on the right measuring 6 mm. Further evaluation of pulmonary nodules as outpatient -venous Doppler:No evidence of deep venous thrombus within the bilateral lower extremities. Elevated Troponin, suspect demand Ischemia EKG personally reviewed, no signs of acute ischemia Denies chest pain Troponin trended down Iron deficiency anemia Vitamin B12 deficiency Reviewed anemia work-up Will start on iron and Vit B12 supplements Given IV Venofer Hyponatremia Likely multifactorial--dehydration, alcohol use Sodium 135 today Monitor Hypokalemia Replete electrolytes as needed monitor Prediabetes HbA1c 6.0 Alcohol use disorder Counseled to quit drinking Continue thiamine, folic acid Monitor for alcohol withdrawal HTN Resume lisinopril Monitor BP Discontinue HCTZ given history of gout 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 smoking Anxiety/depression -Continue citalopram DVT Px: Teds, scds Re: GI bleed, Anemia CODE STATUS: Full code Admission and Anticipated Discharge Date Admission Date: August 30, 2023 Subjective Patient is seen and examined at bedside States having persistent left knee pain, ambulatory dysfunction secondary to pain No recurrence of GI bleeding Dyspnea on exertion resolved Denies any chest pain, dyspnea, dizziness, nausea, vomiting, abdominal pain Hb stable Review of Systems Review of Systems: All systems reviewed & are unremarkable except as noted in Subjective Physical Exam Physical Exam: Physical Exam: Vitals signs as noted above General Appearance:Moderately built and nourished, no apparent distress Head: normocephalic, Atraumatic Eyes: normal inspection, EOMI Neck: supple, Trachea midline Respiratory/Chest: Normal breath sounds, CTA, No accessory muscle use Cardiovascular: S1, S2, No murmur Abdomen/GI:Soft, Non tender, Bowel sounds present Extremities/Musculoskeletal:normal inspection, no edema, Left Knee decreased ROM due to pain Neurologic/Psych:AAOX3, grossly no focal neurological deficits Skin: normal color, warm Results & Data Results & Data Vital Signs (Past 12 Hours) Vital Signs Temp Pulse Pulse Resp BP Pulse Ox O2 Del Method 09/02/23 11:46 36.8 C 60 16 156/77 H 95 Room Air 09/02/23 07:36 36.7 C 77 16 143/90 H 95 CPAP 09/02/23 07:16 78 09/02/23 04:00 36.8 C 79 18 143/79 H 96 CPAP Laboratory Results Short CBC 09/01/23 09/02/23 Range/Units 20:01 06:16 WBC 7.10 (4.8-10.8) K/ul Hgb 8.4 L 8.5 L (14.0-18.0) g/dl Hct 27.1 L 27.4 L (42.0-52.0) % Plt Count 246 (130-400) K/uL [facility] 09/02/23 06:16 Sodium 135 L Potassium 4.0 Chloride 102 Carbon Dioxide 28 BUN 8 Creatinine 1.02 Glucose 96 Calcium 8.9 (1) Anemia Anemia type: unspecified type Qualified Code(s): D64.9 - Anemia, unspecified
--- NOTE | 2023-09-02 15:41 | Orthopedic Consultation ---
Date of Consultation September 02, 2023 Assessment & Plan (1) Effusion, left knee: The patient was educated regarding today's findings. Conservative care measures were discussed. Possibility of internal derangement, gout flare, infection, hemarthrosis were discussed. States it feels like his gout flares in the past. He states he has not not had his knee aspirated at least 15 years. Risks and benefits of aspiration at this time were discussed with the patient. He is agreeable to proceed. Informed oral consent was obtained. Findings and care plan will be discussed with Dr. Echevarria. For now, continue on the colchicine. He is not able to take NSAIDs due to the GI bleed. Transition to allopurinol as soon as able. If indeed his lab work suggest gout, he may also benefit from a steroid. Continue with Tylenol for pain control. Procedure: Informed oral consent was obtained for aspiration. Left knee was confirmed with the patient. He superior lateral patellar joint line was identified and marked. The skin was cleansed with Betadine x2 and alcohol swab x2. The skin was anesthetized using ethyl chloride spray. The skin was cleansed again using a call. An 18-gauge needle was used to aspirate 8 mL of blood-tinged synovial fluid. The patient tolerated the procedure well. Hemostasis was achieved with a Band-Aid. Joint fluid was sent for cell count and Gram stain, crystal analysis, and aerobic/anaerobic culture with sensitivity. History of Present Illness Reason for Consultation: Bilateral knee pain, left greater than right Attending Physician: Wilver Horan MD History of Present Illness This 53-year-old male with a history of GI bleed, anemia, gout, alcoholism, generalized anxiety disorder, hypertension, and current gastric ulcer, is seen today in consultation for bilateral knee pain, left greater than right, has been ongoing intermittently over the last 2 months. The patient states he has a history of gout since his 30s. He had numerous episodes at that time. He was placed on allopurinol and states he had no further episodes for 15 years. He recently stopped taking allopurinol about 4 months ago on his own volition. Over the last 2 months he has been using large amounts of ibuprofen to help improve his pain. He states the pain is worse with motion. He notes intermittent swelling. No numbness or tingling. He occasionally has pain in his ankles as well, but denies current discomfort there. No fevers or chills. He states the knees are occasionally warm, but denies any redness. Allergies Allergy/AdvReac Type Severity Reaction Status Date / Time No Known Allergies Allergy Unverified 08/30/23 13:49 Home Medications Medication Instructions Recorded Confirmed Type citalopram 40 mg tablet 40 mg PO QAM 08/30/23 08/30/23 History hydrochlorothiazide 25 mg tablet 25 mg PO QAM 08/30/23 08/30/23 History ibuprofen 200 mg tablet (Advil) 200 mg PO Q6H PRN Pain 08/30/23 08/30/23 History lisinopril 40 mg tablet 40 mg PO QAM 08/30/23 08/30/23 History Patient History Medical History (Updated 09/02/23 @ 15:48 by Kirby Koroma PA-C) Gout MDD (major depressive episode), single episode, severe, no psychosis Alcoholism FERNANDO (generalized anxiety disorder) HTN (hypertension) Surgical History (Updated 09/02/23 @ 15:39 by Kirby Koroma PA-C) History of esophagogastroduodenoscopy Family History Father Coronary heart disease Mother Thyroid disorder Social History Smoking Status: Never smoker Tobacco Type: Smokeless Tobacco (Dip or Chew) Second Hand Exposure: No; Do You Dip or Chew Tobacco: No; Tobacco Cessation Education Requested by Patient: No Hx Alcohol Use: Yes Alcohol type: beer Hx Substance Use: No Preferred Language: Tajik Communication Ability: Effective Marketing And Development Coordinator Required: No Beliefs That Will Affect Care: None Current Living Situation: Alone Other Information That Helps Us Care for You: No Feels Safe at Home: Yes Safety Concerns: Feels Safe At This Time Assistive Devices: CPAP Review of Systems Review of Systems: All systems reviewed & are unremarkable except as noted in HPI & below Physical Exam Physical Exam: General: Well-developed, well-nourished, middle-aged male, in no acute distress. Laying in bed. Alert and oriented. Conversive. Skin: Warm dry with good turgor. No rashes. No ecchymosis or erythema. Left knee is mildly warm compared to the surrounding tissue. No warmth in the right knee. Mild intra-articular effusion is present in both knees. 1+ edema present peripherally in the ankles and feet. Musculoskeletal: Right knee evaluation reveals no obvious deformity. Mild swelling is present as stated. He has full terminal extension. Flexion to around 95 degrees. Strength is 5/5 with good quad tone. Stable collateral ligaments. No defect in the patellar tendon or quadriceps tendon. Generalized discomfort with palpation along the lateral aspect of his knee. No significant pain present medially. Discomfort is worse with motion. Left knee evaluation reveals the mild effusion as well. Range of motion is more limited. Full terminal extension. Flexion to only around 45 degrees, limited by pain. Pain is worse with motion. Stable collateral ligaments. No defect in the patellar tendon or quadriceps tendon. He is able to perform a quad set and straight leg raise with both legs. Intact motor function of both ankles. Neurologic: Gross sensation is intact across both lower extremities by soft touch. Peripheral pulses are 2+. Results & Data Vital Signs (Past 12 Hours) Vital Signs Temp Pulse Pulse Resp BP Pulse Ox O2 Del Method 09/02/23 11:46 36.8 C 60 16 156/77 H 95 Room Air 09/02/23 07:36 36.7 C 77 16 143/90 H 95 CPAP 09/02/23 07:16 78 09/02/23 04:00 36.8 C 79 18 143/79 H 96 CPAP Laboratory Results CBC obtained this morning shows a white count of 7.1. H&H of 8.5 and 27.4. He exhibits a microcytic anemia with a low MCV V and MCH. Normal platelets at 246,000. C-reactive protein is elevated at 2.74. Diagnostic Findings Radiographic imaging previously obtained of the left knee was reviewed. He has normal joint space without evidence of loose body or fracture. Mild effusion is noted. Venous Doppler study of lower extremities was also performed. It is negative for DVT.
[2023-09-02] MEDS ORDERED: HYDROmorphone INJ 0.5 MG/0.5 ML SYR IV ONE (16:07)
[2023-09-02 16:30] LABS: Appearance Synovial Fluid Hazy; Color Synovial Fluid Pink; Mononuclear WBC Synovial 10.9 %; Polynuclear WBC Synovial 89.1 %; RBC Synovial Fluid Auto 24000 /uL; Source Synovial Fluid Left Knee; WBC Synovial Fluid Auto 4119 /ul (0-200)
[2023-09-02] MEDS: lisinopril 40 MG TAB PO SCH (16:38)
[2023-09-02 20:41] LABS: Hematocrit (blood only) 27.2 % (42.0-52.0); Hemoglobin 8.6 g/dl (14.0-18.0)
[2023-09-03] MEDS: oxyCODONE/ACETAMINOPHEN 5mg/325mg TAB PO PRN ×3 (04:20→20:14)
[2023-09-03 07:29] LABS: Hematocrit (blood only) 26.5 % (42.0-52.0); Hemoglobin 8.1 g/dl (14.0-18.0); Mean Corpuscular Hemoglobin 23.3 pg (25.0-34.0); Mean Corpuscular Hgb Conc 30.6 g/dL (32.0-36.0); Mean Corpuscular Volume 76.4 fL (80.0-100.0); Platelet Count 240 K/uL (130-400); RDW Coefficient of Variation 21.3 % (11.5-14.5); RDW Standard Deviation 56.4 fL (36.4-46.3); Red Blood Count 3.47 M/uL (4.70-6.10); White Blood Count 5.45 K/ul (4.8-10.8)
[2023-09-03 08:46] LABS: Calcium 8.9 mg/dl (8.6-10.3); Potassium 3.7 mmol/L (3.5-5.1)
[2023-09-03] MEDS: MULTIVITAMIN TAB PO SCH (08:46)
[2023-09-03] MEDS: DICLOFENAC SOD 1% GEL 100 GM TUBE EXT SCH ×2 (08:46→20:15)
[2023-09-03] MEDS: CYANOCOBALAMIN (B-12) 500 MCG TABLET PO SCH (08:46)
[2023-09-03] MEDS: SUCRALFATE 1 GM TAB PO SCH ×4 (08:46→20:14)
[2023-09-03] MEDS: CITALOPRAM 40 MG TAB PO SCH (08:46)
[2023-09-03] MEDS: COLCHICINE 0.6 MG TAB PO SCH (08:46)
[2023-09-03] MEDS: FOLIC ACID 1 MG TAB PO SCH (08:46)
[2023-09-03] MEDS: lisinopril 40 MG TAB PO SCH (08:46)
[2023-09-03] MEDS: PANTOprazole 40 MG TAB PO SCH ×2 (08:46→20:15)
[2023-09-03] MEDS: THIAMINE HCL 100 MG TAB PO SCH (08:46)
[2023-09-03 08:52] LABS: BUN Creatinine Ratio 9.6 (10-20); Creatinine Clr Calc Pharmacy 105.5 ml/min; Est GFR (African American) 107.6 ml/min; Est GFR (Non-African American) 92.8 ml/min
--- NOTE | 2023-09-03 09:30 | Orthopedic Progress Note ---
Date of Service September 03, 2023 Assessment & Plan (1) Effusion, left knee: Plan: 53-year-old male with acute, left greater than right knee pain and effusion, history of gout Patient has left knee aspirated yesterday and reports no improvement in his symptoms and now his right knee is starting to bother him as well. Synovial fluid analysis listed above consistent with inflammatory etiology, crystals are still pending. Continue colchicine. Pain control per primary. Patient would likely benefit from steroids, will continue to follow for crystal analysis. Plan discussed with attending. Admission and Anticipated Discharge Date Admission Date: August 30, 2023 Subjective Patient was seen and examined at bedside. He says that his left knee is no better. It is okay at rest but he has difficulty and pain whenever he tries to move it. His right knee is now also starting to bother him. Physical Exam Physical Exam: Patient is sitting up this morning awake alert and oriented and eating breakfast. Mild swelling noted bilaterally right and left knees. He is tender over the lateral joint line bilaterally. He has about 10 degrees of flexion with his left knee before it gets too painful for him. He is able to flex to about 30 to 45 degrees with his right knee. No warmth or erythema. He has full range of motion of his ankle with no issues. Calf is supple and nontender. Foot is warm and pink. Results & Data Vital Signs (Past 12 Hours) Vital Signs Temp Pulse Pulse Resp BP Pulse Ox O2 Del Method 09/03/23 07:57 36.9 C 67 18 119/71 98 Room Air 09/03/23 07:13 62 09/03/23 04:07 60 16 95 09/03/23 03:34 36.9 C 61 18 118/67 95 Room Air 09/02/23 23:20 36.7 C 80 18 125/69 94 Room Air 09/02/23 23:02 79 20 96 09/02/23 21:59 80 FiO2 09/03/23 07:57 09/03/23 07:13 09/03/23 04:07 21 09/03/23 03:34 09/02/23 23:20 09/02/23 23:02 21 09/02/23 21:59 Laboratory Results 09/03/23 09/02/23 09/02/23 Range/Units 06:53 20:14 14:50 WBC 5.45 (4.8-10.8) K/ul RBC 3.47 L (4.70-6.10) M/uL Hgb 8.1 L 8.6 L (14.0-18.0) g/dl Hct 26.5 L 27.2 L (42.0-52.0) % MCV 76.4 L (80.0-100.0) fL MCH 23.3 L (25.0-34.0) pg MCHC 30.6 L (32.0-36.0) g/dL RDW Std Deviation 56.4 H (36.4-46.3) fL RDW Coeff of [place] 21.3 H (11.5-14.5) % Plt Count 240 (130-400) K/uL MPV 10.0 (9.4-12.4) fL ESR (0-20) mm/hr Sodium 137 (136-145) mmol/L Potassium 3.7 (3.5-5.1) mmol/L Chloride 103 (98-107) mmol/L Carbon Dioxide 29 (21-32) mmol/L Anion Gap 5 (3-11) BUN 9 (6-23) mg/dl Creatinine 0.94 (0.6-1.4) mg/dl Est Cr Clr Drug Dosing 105.5 ml/min Est GFR ( Amer) 107.6 ml/min Est GFR (Non-Af Amer) 92.8 ml/min BUN/Creatinine Ratio 9.6 L (10-20) Glucose 99 (70-99(Fasting)) mg/dl Calcium 8.9 (8.6-10.3) mg/dl C-Reactive Protein Fluid Comment Synovial Source Left Knee Synovial Color [place] Synovial Appearance Hazy Synovial WBC (Auto) 4119 H (0-200) /ul Synovial RBC (Auto) 65756 /uL Synovial Polynuclear % 89.1 % Synovial Mononuclear % 10.9 % Synovial Crystals Pending 09/02/23 09/02/23 Range/Units 06:16 06:16 WBC (4.8-10.8) K/ul RBC (4.70-6.10) M/uL Hgb (14.0-18.0) g/dl Hct (42.0-52.0) % MCV (80.0-100.0) fL MCH (25.0-34.0) pg MCHC (32.0-36.0) g/dL RDW Std Deviation (36.4-46.3) fL RDW Coeff of [place] (11.5-14.5) % Plt Count (130-400) K/uL MPV (9.4-12.4) fL ESR 20 (0-20) mm/hr Sodium (136-145) mmol/L Potassium (3.5-5.1) mmol/L Chloride (98-107) mmol/L Carbon Dioxide (21-32) mmol/L Anion Gap (3-11) BUN (6-23) mg/dl Creatinine (0.6-1.4) mg/dl Est Cr Clr Drug Dosing ml/min Est GFR ( Amer) ml/min Est GFR (Non-Af Amer) ml/min BUN/Creatinine Ratio (10-20) Glucose (70-99(Fasting)) mg/dl Calcium (8.6-10.3) mg/dl C-Reactive Protein 2.74 H Cancelled Fluid Comment Synovial Source Synovial Color Synovial Appearance Synovial WBC (Auto) (0-200) /ul Synovial RBC (Auto) /uL Synovial Polynuclear % % Synovial Mononuclear % % Synovial Crystals
[2023-09-03] MEDS: methylPREDNISolone 40 MG in SYRINGE 0 ML IV SCH ×2 (11:04→20:15)
[2023-09-03] MEDS ORDERED: methylPREDNISolone acetate 40 MG/ML VIAL INJ ONE ×2 (12:47)
[2023-09-03] MEDS ORDERED: LIDOCAINE 1% LOCAL 20 ML VIAL INFIL SCH (13:00)
--- NOTE | 2023-09-03 13:17 | Hospitalist Progress Note ---
Date of Service September 03, 2023 Assessment & Plan (1) Anemia: (2) GI bleed: (3) HTN (hypertension): (4) FERNANDO (generalized anxiety disorder): (5) Alcoholism: (6) Gout: Plan: Acute GI bleed/Melena Symptomatic acute blood loss anemia H/O internal hemorrhoids Patient presented to the hospital with weakness, shortness of breath for 10 days. Also bright red blood per rectum for 10 days --S/P EGD on August 31, 2023:Normal esophagus. Non-bleeding gastric ulcers with no stigmata of bleeding. Biopsied. Normal examined duodenum. --S/P 4 units PRBCs Continue Protonix 40 mg p.o. twice daily Follow-up pathology results for H pylori--pending Monitor H&H and transfuse PRBCs as needed Avoid NSAIDs Needs follow-up with GI in 6 weeks as outpatient Continue Carafate Hb stable Currently no bleeding issues Acute gout Ambulatory dysfunction History of gout for several years; not on medication currently Patient reported left knee pain L knee X ray:Joint effusion with no acute bony abnormality identified. Status post aspiration by orthopedic Fluid and lysis reviewed; WBC of 4000, uric acid crystals present Patient is currently on colchicine. Continue for now Also started on IV steroids; will see the response. Lyme IgG/IgM ordered Discussed with orthopedic regarding possible intra-articular injection; we will follow-up on recommendation. Elevated D-dimer Pulmonary nodules --CTA:No evidence for a pulmonary embolus. Mild cardiomegaly. A few subcentimeter indeterminate pulmonary nodules within the lower lobes with the largest on the right measuring 6 mm. Further evaluation of pulmonary nodules as outpatient -venous Doppler:No evidence of deep venous thrombus within the bilateral lower extremities. 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 It may contain grammatical, syntax or spelling errors. Any formal questions or concerns about the content, text or information contained within the body of this dictation should be directly addressed to the provider for clarification Admission and Anticipated Discharge Date Admission Date: August 30, 2023 Subjective Patient reports that he continues to have pain in his left knee; has not been able to move it well due to the pain. He reports that his right knee is also starting to have pain. Review of Systems Review of Systems: All systems reviewed & are unremarkable except as noted in Subjective Physical Exam Physical Exam: Physical Exam: Vitals signs as noted above General Appearance:Moderately built and nourished, no apparent distress Head: normocephalic, Atraumatic Eyes: normal inspection, EOMI Neck: supple, Trachea midline Respiratory/Chest: Normal breath sounds, CTA, No accessory muscle use Cardiovascular: S1, S2, No murmur Abdomen/GI:Soft, Non tender, Bowel sounds present Extremities/Musculoskeletal:normal inspection, no edema, Left Knee decreased ROM due to pain. Slight swelling on right knee Neurologic/Psych:AAOX3, grossly no focal neurological deficits Skin: normal color, warm Results & Data Results & Data Vital Signs (Past 12 Hours) Vital Signs Temp Pulse Pulse Resp BP Pulse Ox O2 Del Method 09/03/23 11:53 36.6 C 74 18 143/78 H 96 Room Air 09/03/23 07:57 36.9 C 67 18 119/71 98 Room Air 09/03/23 07:13 62 09/03/23 04:07 60 16 95 09/03/23 03:34 36.9 C 61 18 118/67 95 Room Air FiO2 09/03/23 11:53 09/03/23 07:57 09/03/23 07:13 09/03/23 04:07 21 09/03/23 03:34 Laboratory Results Laboratory Results WBC 5.45 K/ul (4.8-10.8) 09/03/23 06:53 RBC 3.47 M/uL (4.70-6.10) L 09/03/23 06:53 Hgb 8.1 g/dl (14.0-18.0) L 09/03/23 06:53 Hct 26.5 % (42.0-52.0) L 09/03/23 06:53 MCV 76.4 fL (80.0-100.0) L 09/03/23 06:53 MCH 23.3 pg (25.0-34.0) L 09/03/23 06:53 MCHC 30.6 g/dL (32.0-36.0) L 09/03/23 06:53 RDW Std Deviation 56.4 fL (36.4-46.3) H 09/03/23 06:53 RDW Coeff of [place] 21.3 % (11.5-14.5) H 09/03/23 06:53 Plt Count 240 K/uL (130-400) 09/03/23 06:53 MPV 10.0 fL (9.4-12.4) 09/03/23 06:53 Immature Gran % (Auto) 0.4 % 08/30/23 12:29 Neut % (Auto) 69.5 % 08/30/23 12:29 Lymph % (Auto) 16.6 % 08/30/23 12:29 Charles % (Auto) 12.7 % 08/30/23 12:29 Eos % (Auto) 0.6 % 08/30/23 12:29 Baso % (Auto) 0.2 % 08/30/23 12:29 Neut # (Auto) 3.40 K/uL (1.40-6.50) 08/30/23 12:29 Lymph # (Auto) 0.81 K/uL (1.20-3.40) L 08/30/23 12:29 Charles # (Auto) 0.62 K/uL (0.11-0.59) H 08/30/23 12:29 Eos # (Auto) 0.03 K/uL (0.00-0.50) 08/30/23 12:29 Baso # (Auto) 0.01 K/uL (0.00-0.20) 08/30/23 12:29 Immature Gran # (Auto) 0.02 K/uL (0.01-0.20) 08/30/23 12:29 Absolute Nucleated RBC 0.02 K/uL (0.00-0.12) 09/02/23 06:16 Nucleated RBC % (auto) 0.3 % 09/02/23 06:16 Polychromasia 2+ 08/30/23 12:29 Microcytosis Present 08/30/23 12:29 ESR 20 mm/hr (0-20) 09/02/23 06:16 PT 11.4 Seconds (9.0-12.0) 08/30/23 12:29 INR 1.0 (0.9-1.1) 08/30/23 12:29 APTT 24.6 Seconds (21.0-31.0) 08/30/23 12:29 PTT Ratio 0.9 08/30/23 12:29 D-Dimer 1680 ug/L FEU (0-500) H* 08/30/23 12:29 Sodium 137 mmol/L (136-145) 09/03/23 06:53 Potassium 3.7 mmol/L (3.5-5.1) 09/03/23 06:53 Chloride 103 mmol/L (98-107) 09/03/23 06:53 Carbon Dioxide 29 mmol/L (21-32) 09/03/23 06:53 Anion Gap 5 (3-11) 09/03/23 06:53 BUN 9 mg/dl (6-23) 09/03/23 06:53 Creatinine 0.94 mg/dl (0.6-1.4) 09/03/23 06:53 Est Cr Clr Drug Dosing 105.5 ml/min 09/03/23 06:53 Est GFR ( Amer) 107.6 ml/min 09/03/23 06:53 Est GFR (Non-Af Amer) 92.8 ml/min 09/03/23 06:53 BUN/Creatinine Ratio 9.6 (10-20) L 09/03/23 06:53 Glucose 99 mg/dl (70-99(Fasting)) 09/03/23 06:53 Estimat Average Glucose 126 mg/dl 08/31/23 02:17 Hemoglobin A1c 6.0 % (4.5-5.6) H 08/31/23 02:17 Calcium 8.9 mg/dl (8.6-10.3) 09/03/23 06:53 Phosphorus 3.1 mg/dl (2.5-4.9) 08/31/23 02:17 Magnesium 2.1 mg/dl (1.7-2.4) 09/01/23 07:02 Iron 19 mcg/dl (35-175) L 08/31/23 11:53 Transferrin 433 mg/dl (200-360) H 08/31/23 11:53 Ferritin 4.9 ng/ml (8-388) L 08/31/23 11:53 Total Bilirubin 0.4 mg/dl (0.2-1.0) 08/30/23 12:30 AST 26 U/L (13-39) 08/30/23 12:30 ALT 55 U/L (7-52) H 08/30/23 12:30 Alkaline Phosphatase 70 U/L (34-104) 08/30/23 12:30 Troponin I High Sens 241.9 pg/ml (0-20) H* 08/31/23 02:17 C-Reactive Protein 2.74 mg/dl (0-0.5) H 09/02/23 06:16 C-Reactive Protein Cancelled 09/02/23 06:16 B-Natriuretic Peptide 28 pg/ml (0-100) 08/30/23 12:29 Total Protein 8.2 gm/dl (6.0-8.3) 08/30/23 12:30 Albumin 4.8 gm/dl (3.4-5.0) 08/30/23 12:30 Globulin 3.4 gm/dl (2.5-4.0) 08/30/23 12:30 Albumin/Globulin Ratio 1.4 (0.9-2) 08/30/23 12:30 Triglycerides 125 mg/dl (0-150) 08/31/23 02:17 Cholesterol 104 mg/dl (0-200) 08/31/23 02:17 LDL Cholesterol, Calc 51 mg/dl 08/31/23 02:17 VLDL Cholesterol, Calc 25 mg/dl (0-30) 08/31/23 02:17 HDL Cholesterol 28 mg/dl 08/31/23 02:17 Cholesterol/HDL Ratio 3.7 (0-5) 08/31/23 02:17 Lipase 30 U/L (11-82) 08/30/23 12:30 Vitamin B12 147 pg/ml (180-914) L 08/31/23 11:53 Folate > 22.30 ng/ml (>5.38) 08/31/23 11:53 TSH 1.237 uIu/ml (0.300-4.500) 08/30/23 12:30 Fluid Comment 09/02/23 14:50 Synovial Source Left Knee 09/02/23 14:50 Synovial Color [place] 09/02/23 14:50 Synovial Appearance Hazy 09/02/23 14:50 Synovial WBC (Auto) 4119 /ul (0-200) H 09/02/23 14:50 Synovial RBC (Auto) 72257 /uL 09/02/23 14:50 Synovial Polynuclear % 89.1 % 09/02/23 14:50 Synovial Mononuclear % 10.9 % 09/02/23 14:50 Synovial Crystals 09/02/23 14:50 Blood Type O Positive 08/30/23 14:17 Blood Type Recheck O Positive 08/30/23 14:20 Antibody Screen NEGATIVE 08/30/23 14:17 Crossmatch See Detail 08/30/23 14:17 Impressions Chest X-Ray 08/30/23 12:18 XR chest 1V portable HISTORY: Atypical chest pain. COMPARISON: None. FINDINGS: The lungs are clear. Cardiac silhouette is normal in size. No pleural effusions. No pneumothorax. IMPRESSION: No acute process. ACT 112: Negative or not required by law. Electronically signed by: Pablo Waddell M.D. 08/30/2023 1:22 PM Chest CTA 08/30/23 13:28 CHEST CTA for PULMONARY ARTERIES CT DOSE: 911.62 mGy.cm HISTORY: Atypical chest pain. TECHNIQUE: Multiaxial CT images of the chest were performed following the intravenous administration of contrast to evaluate the pulmonary arteries. 3D/Maximal intensity projection images were also obtained. Sagittal and coronal reformations were also reviewed. A dose lowering technique was utilized adhering to the principles of ALARA. COMPARISON STUDY: None. FINDINGS: Normal caliber thoracic aorta with no evidence for a dissection. The heart is mildly enlarged. No pleural or pericardial effusions. Coronary artery calcifications are noted. No filling defects within the pulmonary arteries to suggest a pulmonary embolus. The thyroid gland. Limited views of the upper abdomen demonstrate a normal liver, spleen, and adrenal glands. Normal esophagus. No mediastinal or hilar lymphadenopathy. No acute fractures within t he chest. The central airways are patent. No pneumothorax. There is a 5 mm subpleural nodule within the left lower lobe on image 75. There is a 4 mm nodule within the left lower lobe on image 60. There is a 6 mm subpleural nodule within the right lower lobe on image 87. IMPRESSION: 1. No evidence for a pulmonary embolus. 2. Mild cardiomegaly. 3. A few subcentimeter indeterminate pulmonary nodules within the lower lobes with the largest on the right measuring 6 mm. Please refer to below summary of Fleischner criteria recommendations for follow- up of incidental CT nodules (Kiran Kirk, Guidelines for management of small pulmonary nodules detected on CT scans: A statement from the Fleischner Society, Radiology 237: [phone].) SOLID NODULES Solitary nodule size: <6 mm * Low risk patients: no follow-up needed * high risk patients: optional CT at 12 months Solitary nodule size: 6-8 mm * Low risk patients: follow-up at 6-12 months, then consider further follow-up at 18-24 months * high risk patients: initial follow-up CT at 6-12 months and then at 18-24 months if no change Solitary nodule size: >8 mm * either low or high risk patients - consider follow-up CT at 3 months, and/or CT-PET, and/or biopsy Multiple nodules size: <6 mm * Low risk patients: no routine follow-up * high risk patients: optional CT at 12 months Multiple nodules size: 6-8 mm * Low risk patients: follow-up at 3-6 months, then consider further follow-up at 18-24 months * high risk patients: follow-up at 3-6 months, then at 18-24 months if no change Multiple nodules size: >8 mm * Low risk patients: follow-up at 3-6 months, then consider further follow-up at 18-24 months * high risk patients: follow-up at 3-6 months, then at 18-24 months if no change Note: newly detected indeterminate nodule in persons 35 years of age or older. * Low risk patients: minimal or absent history of smoking and/or other known risk factors * high risk patients: history of smoking or of other known risk factors (e.g. first degree relative with lung cancer, or exposure to asbestos, radon, uranium) * if a nodule up to 8 mm is partly solid or is ground glass further follow-up is required after 24 months to exclude possible slow growing adenocarcinoma (JOSE ELIAS) SUBSOLID NODULES Solitary pure ground-glass nodule * nodule size <6 mm - no CT follow-up required * nodule size >=6 mm - follow-up CT at 6-12 months, then every 2 years until 5 years Solitary part-solid nodule * nodule size <6 mm - no CT follow-up required * nodule size >=6 mm - follow-up CT at 3-6 months. If unchanged, and solid component remains <6 mm, then annual follow-up for 5 years Multiple subsolid nodules * nodule size <6 mm - follow-up CT at 3-6 months, consider further follow-up at 2 and 4 years if stable * nodule size >=6 mm - follow-up CT at 3-6 months, subsequent management based on the most suspicious nodule(s) ACT 112: Positive. There are findings on this exam that require communication between the performing entity and the patient following Patient Test Result Information Act ([place] Act 112) guidelines. Electronically signed by: Pablo Waddell M.D. 08/30/2023 3:51 PM Knee X-Ray 08/31/23 09:45 LEFT KNEE 3 VIEWS CLINICAL HISTORY: Left knee pain. FINDINGS: AP, lateral, and sunrise views of the left knee are obtained. No prior studies are available for comparison at the time of dictation. The skeletal structures are well mineralized. No fracture is seen. The joint spaces are maintained. There is a small joint effusion. A calcified fabella is incidentally noted. IMPRESSION: Joint effusion with no acute bony abnormality identified. Electronically signed by: Jacky Pichardo M.D. 08/31/2023 11:37 AM Venous Doppler Study 09/01/23 00:00 BILATERAL LOWER EXTREMITY VENOUS DOPPLER CLINICAL HISTORY: Elevated D dimer R/O DVT COMPARISON STUDY: No previous studies for comparison. TECHNIQUE: Sonography of the deep venous system of the bilateral lower extremities was performed. Compression and augmentation were evaluated. FINDINGS: The bilateral common femoral, superficial femoral and popliteal veins were compressible. Augmentation was normal. Flow was shown within the deep calf vessels. IMPRESSION: No evidence of deep venous thrombus within the bilateral lower extremities. ACT 112: Negative or not required by law. Electronically signed by: Leonardo Nunn M.D. 09/01/2023 5:09 PM (1) Anemia Anemia type: unspecified type Qualified Code(s): D64.9 - Anemia, unspecified
[2023-09-03 14:05] LABS: Lyme Ab IgG w/WB Rflx Negative (Negative)
[2023-09-03 14:07] LABS: Lyme Ab IgM w/WB Rflx Negative (Negative)
[2023-09-04 07:23] LABS: Hematocrit (blood only) 27.6 % (42.0-52.0); Hemoglobin 8.6 g/dl (14.0-18.0); Immature Granulocytes # (auto) 0.04 K/uL (0.01-0.20); Immature Granulocytes % (auto) 0.5 %; Lymphocytes # (auto) 0.57 K/uL (1.20-3.40); Lymphocytes % (auto) 7.7 %; Mean Corpuscular Hemoglobin 23.3 pg (25.0-34.0); Mean Corpuscular Hgb Conc 31.2 g/dL (32.0-36.0); Mean Corpuscular Volume 74.8 fL (80.0-100.0); Monocytes # (auto) 0.52 K/uL (0.11-0.59); Monocytes % (auto) 7.1 %; Neutrophils # (auto) 6.23 K/uL (1.40-6.50); Neutrophils % (auto) 84.7 %; Platelet Count 271 K/uL (130-400); RDW Coefficient of Variation 21.9 % (11.5-14.5); RDW Standard Deviation 57.2 fL (36.4-46.3); Red Blood Count 3.69 M/uL (4.70-6.10); White Blood Count 7.36 K/ul (4.8-10.8)
[2023-09-04 07:34] LABS: BUN Creatinine Ratio 16.3 (10-20); Calcium 9.3 mg/dl (8.6-10.3); Creatinine Clr Calc Pharmacy 123.9 ml/min; Est GFR (Non-African American) 102.7 ml/min; Potassium 4.1 mmol/L (3.5-5.1); Uric Acid 8.4 mg/dl (2.6-7.2)
[2023-09-04 08:04] LABS: Anisocytosis Present; Hypochromasia Present
[2023-09-04] MEDS: methylPREDNISolone 40 MG in SYRINGE 0 ML IV SCH (08:16)
[2023-09-04] MEDS: COLCHICINE 0.6 MG TAB PO SCH (08:16)
[2023-09-04] MEDS: FOLIC ACID 1 MG TAB PO SCH (08:17)
[2023-09-04] MEDS: THIAMINE HCL 100 MG TAB PO SCH (08:17)
[2023-09-04] MEDS: CITALOPRAM 40 MG TAB PO SCH (08:17)
[2023-09-04] MEDS: CYANOCOBALAMIN (B-12) 500 MCG TABLET PO SCH (08:17)
[2023-09-04] MEDS: SUCRALFATE 1 GM TAB PO SCH ×2 (08:17→13:09)
[2023-09-04] MEDS: DICLOFENAC SOD 1% GEL 100 GM TUBE EXT SCH (08:17)
[2023-09-04] MEDS: PANTOprazole 40 MG TAB PO SCH (08:17)
[2023-09-04] MEDS: lisinopril 40 MG TAB PO SCH (08:17)
[2023-09-04] MEDS: oxyCODONE/ACETAMINOPHEN 5mg/325mg TAB PO PRN (08:22)
[2023-09-04] MEDS: MULTIVITAMIN TAB PO SCH (08:49)
--- NOTE | 2023-09-04 10:37 | Orthopedic Progress Note ---
Date of Service September 04, 2023 Assessment & Plan (1) Gout of knee: Plan: Patient has confirmed gout in his left knee. He has been on IV prednisone and colchicine. Today he is feeling significantly better. He is been able to ambulate throughout the room. He is hopeful that he will be sent home on some type of steroid for the next few days to continue this process. Each day he notices improvement. we would recommend resuming his allopurinol for prevention. He can follow-up with Dr. Echevarria or at [facility] orthopedics on an as-needed basis. We will hold off any type of intra- articular injection for the time being. He understands and agrees with the plan. Our office information was placed in discharge instructions. Admission and Anticipated Discharge Date Admission Date: August 30, 2023 Subjective Patient is sitting in bed. Doing very well today. States that he feels significantly better. He has been ambulating in the halls without his walker. He is able to apply a normal weight on the left leg. He states that he still has some trouble bending it but it is improving. He is hopeful to be discharged home today. Physical Exam Musculoskeletal: Exam of his bilateral knees: He has normal flexion in both knees. He still has some discomfort in the lateral aspect of his left knee with flexion past 90 degrees. Trace effusion in the left knee. No effusion in the right. He is able to independently straight leg raise bilaterally. Strength is 5/5. He demonstrates ambulating in the room today without an assistive device or antalgia. Results & Data Vital Signs (Past 12 Hours) Vital Signs Temp Pulse Pulse Resp BP Pulse Ox O2 Del Method 09/04/23 07:25 36.7 C 68 18 153/77 H 97 CPAP 09/04/23 07:20 73 09/04/23 03:44 36.6 C 67 16 137/75 97 Room Air 09/04/23 03:03 69 14 93 09/04/23 00:58 67 15 96 09/03/23 22:50 36.6 C 67 17 138/76 94 Room Air FiO2 09/04/23 07:25 09/04/23 07:20 09/04/23 03:44 09/04/23 03:03 21 09/04/23 00:58 21 09/03/23 22:50 Laboratory Results Microbiology 11/20/23 14:50 Gram Stain - Final Knee,Left Aerobic and Anaerobic Culture - Preliminary No growth to date. Cultures are currently pending but continue to be no growth. Synovial fluid was positive for crystals consistent with gout.
--- NOTE | 2023-09-04 14:21 | Discharge Summary ---
Date of Service September 04, 2023 Admission HPI Per Admitting Provider This is a 53-year-old male with PMHx of HTN, gout, FERNANDO, MDD, BPH, former smoker, current tobacco snuff use, alcohol use, marijuana use who presents to the hospital with acute onset of shortness of breath, weakness and dyspnea on exertion x10-day timeframe. He admits to having BRBPR seen in stool for the past 10 days. Patient has a known history of internal hemorrhoids from colonoscopy done about 5 years ago and reports that he would intermittently have some spots on toilet paper, however over the last 10 days has noticed increasing bright red blood in the bowl sometimes filling it, + dark red clots, denies any black tarry stools. He denies nausea or vomiting. Patient admits to drinking significant amount of alcohol up to 6 beers daily, on weekends has upwards of 12/day. Previously he used to drink more. Denies withdrawals symptoms or shaking, denies waking up and feeling the need to have a drink. He states this helps his anxiety in the evening and to fall asleep. pt had stopped drinking for 5 days in a row when he was noticing the blood in his stool. He drank ~6 beers last night. Blood work reveals anemia with hemoglobin of 6.6, HCT 22.2, MCV 69, hyponatremia 131, hypokalemia of 3.4. Pt notes hx of gout with a flare 2 months ago, had been taking ibuprofen up to 16 tabs a day at that time due to pain. In the past month has chronically been using ~600-800 mg daily as he no longer has Rx for allopurinol since being unemployed and without insurance. Social Hx: Drinks alcohol light beer (Rowan Light) 6 daily, and on weekends drinks 12 beers daily. No liquor use or wine use. Pt admits to using more in the past. Admits to using marijuana about once per month via edibles and occasionally smokes marijuana socially, about 1 year ago he had been smoking it daily. Chews nicotine pouches ( goes through 1 can every 2 days) without the tobacco component. Pt reports significant anxiety and since COVID pandemic, had job instability [id number]. 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 Pt has been on citalopram about 15 years ago, and 12 years ago stopped taking, had a major depressive episode and started taking it again, and has been maintained on the same dose since then. Admission Exam Per Admitting Provider General: awake, alert, no apparent distress, white male Head: Normocephalic, atraumatic ENT: PERRL, EOMI, no pharyngeal exudate, mucous membranes moist Chest: Clear to auscultation, on room air, no adventitious breath sounds Cardiac: Regular rate and rhythm, heart rate in the mid 90s at bedside, no murmur, no JVD, normal peripheral pulses, good capillary refill Abdominal: NABS x 4 quadrants, soft, nondistended, mild tenderness in LLQ to palpation, no rebound or guarding Extremities: Normal inspection, no peripheral edema or erythema, calfs nontender to palpation Psych: Normal mood and affect Neuro: AAO x 3, strength intact bilaterally and rated 5/5, no motor deficits, speech is clear, no peripheral sensory deficits Principal Diagnosis Upper GI bleed Acute gout Discharge Exam Physical Exam: Vitals signs as noted above General Appearance:Moderately built and nourished, no apparent distress Head: normocephalic, Atraumatic Eyes: normal inspection, EOMI Neck: supple, Trachea midline Respiratory/Chest: Normal breath sounds, CTA, No accessory muscle use Cardiovascular: S1, S2, No murmur Abdomen/GI:Soft, Non tender, Bowel sounds present Extremities/Musculoskeletal:normal inspection, no edema, Left Knee decreased ROM due to pain; improvement from yesterday. Slight swelling on right knee Neurologic/Psych:AAOX3, grossly no focal neurological deficits Skin: normal color, warm Discharge Data Allergies Allergy/AdvReac Type Severity Reaction Status Date / Time No Known Allergies Allergy Unverified 08/30/23 13:49 Consultations 08/30/23 16:12 ED Decision to Admit Stat 08/30/23 16:28 Consult Gastroenterology Routine 09/02/23 11:20 Consult Orthopedic Surgery Routine Procedures Performed Operation Date: 08/31/23 12:00 Actual Procedures p Esophagogastroduodenoscopy(Not Applicable) - Michael Bernabe, DO Ordered Studies 08/30/23 13:28 CT angio chest PE protocol Stat 09/01/23 US venous doppler LE Routine Hospital Course (1) Anemia: (2) GI bleed: (3) HTN (hypertension): (4) FERNNADO (generalized anxiety disorder): (5) Alcoholism: (6) Gout: Acute GI bleed/Melena Symptomatic acute blood loss anemia H/O internal hemorrhoids Patient presented to the hospital with weakness, shortness of breath for 10 days. Also bright red blood per rectum for 10 days --S/P EGD on August 31, 2023:Normal esophagus. Non-bleeding gastric ulcers with no stigmata of bleeding. Biopsied. Normal examined duodenum. H. pylori negative on pathology. --S/P 4 units PRBCs Discharged on Protonix 40 mg twice daily Acute gout Ambulatory dysfunction History of gout for several years; not on medication currently Patient reported left knee pain L knee X ray:Joint effusion with no acute bony abnormality identified. Status post aspiration by orthopedic Fluid analysis reviewed; WBC of 4000, uric acid crystals present. Gram stain and culture negative. At discharge, patient was placed on colchicine and steroid taper. Patient to follow-up with orthopedic. Patient was able to ambulate without any difficulty at discharge. Please note the above document was generated using voice recognition software. It may contain grammatical, syntax or spelling errors. Any formal questions or concerns about the content, text or information contained within the body of this dictation should be directly addressed to the provider for clarification Total Time Total Time Spent Total Time Spent (In Minutes): 45 Total Time Includes: Examination of the Patient, Discharge Planning, Medication Reconciliation, Communication With Other Providers and Other Discharge Plan Discharge Items Patient Disposition: Home - Self-Care Reason For Visit: ANEMIA, GI BLEED Discharge Diagnosis: Acute upper GI bleed Acute gout Activity: Resume your previous activity Weightbearing: Full weightbearing Non-emergency contact: Primary Care Provider Call non-emergency contact if: you have any medication questions and your symptoms worsen Follow-up/Referrals: Dioni Echevarria MD [Surgeon] - (as needed) Raul Crawford DO [Primary Care Provider] - Diet: Regular Addtl Attending Provider Instructions: You were admitted to the hospital with concern of upper GI bleed. You underwent endoscopy and were found to have 6 nonbleeding ulcers. You are prescribed Protonix to be taken twice daily for at least 2 months; then switched over to Protonix once a day. A Month supply of Protonix has been prescribed. You were also found to have gout on bilateral knee. You are prescribed colchicine to be taken once a day. You can stop taking it if the pain and swelled decreased in the next 2 to 3 days. You were also prescribed prednisone for the gout flareup. Please take 40 mg once a day for 3 days, then 20 mg once a day for 2 days and then 10 mg once a day for 2 days. Please stop taking hydrochlorothiazide as it can contribute to gout flareup. Your uric acid level was found to be elevated to 8.4 Mg per DL; discussed with your primary care doctor regarding starting allopurinol as outpatient. 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 - Elevate as needed for pain and swelling - Weight-bear as tolerated with assistance of walker or nothing as needed. - Call Dr. Echevarria's office for follow-up appointment if necessary. Call to schedule appointment. Pending Studies at Discharge: No Stand-Alone Forms: [facility], Smoking Cessation Medications and DC Order Prescriptions: New cyanocobalamin (vitamin B-12) 500 mcg Tablet 1,000 mcg PO QAM Qty: 60 0RF pantoprazole 40 mg Tablet,Delayed Release (Dr/Ec) 40 mg PO BID Qty: 60 0RF colchicine [Colcrys] 0.6 mg Tablet 0.6 mg PO QAM Qty: 7 0RF prednisone 10 mg tablet See Taper PO DAILY Qty: 18 0RF Taper: Taper, Blank 40 mg DAILY for 2 Days 20 mg DAILY for 2 Days 10 mg DAILY for 2 Days Continued citalopram 40 mg tablet 40 mg PO QAM lisinopril 40 mg tablet 40 mg PO QAM Discontinued ibuprofen [Advil] 200 mg Tablet 200 mg PO Q6H PRN (Reason: Pain) hydrochlorothiazide 25 mg tablet 25 mg PO QAM Discharge Orders: Discharge Order (Routine); Ordered 09/04/23 Ordered By: Paulo Posada/Other Patient Handouts: A1C, 5 Steps for Eating Healthier Admission Data Admit Date/Time: 08/30/23 16:28 Attending Provider: Paulo Ornelas Admit Provider: Rocco Christie Primary Care Provider: Raul Crawford Other Providers: Rocco Christie; Mine Cruz; Rodney Pritchard; Tj Toro; Abran Jackson; Nguyen Forrest; Yohana Quarles; Dallas Jaramillo; Kirby Koroma; Dioni Echevarria; Dioni Hathaway; Alyce Farrell; Jenny Teresa; Noni Meyer; Verena Gold; Wen Baker; Rigo Dorman; Sincere Melo; Judd Rowan; Herminio King; Wilver Horan Other Interventions: Discharge Summary Assessment (RN) Last Done: 09/04/23 13:39
--- NOTE | 2023-09-05 06:20 | Electrocardiogram Report ---
Test Reason : Blood Pressure : / mmHG Vent. Rate : 065 BPM Atrial Rate : 065 BPM P-R Int : 202 ms QRS Dur : 106 ms QT Int : 426 ms P-R-T Axes : 050 034 014 degrees QTc Int : 443 ms Normal sinus rhythm Normal ECG When compared with ECG of 30-AUG-2023 12:22, Vent. rate has decreased BY 43 BPM Confirmed by Edouard Jay ([id number]) on 09/05/2023 6:20:37 AM Referred By: REFERRED SELF Confirmed By:Edouard Jay
--- NOTE | 2023-09-07 13:19 | Coding Query ---
CODING QUERY To promote full compliance with coding requirements relating to patient care, provider participation is requested in all cases of milling operator uncertainty. Please assist us with the question(s) below: Coding Question(s): Pt admitted wtih upper GI bleed. EGD found nonbleeding Gastric Ulcerrs. Pt with history of hemorrhoids. Please document, if known or suspected, the etiology of the upper GI bleed. Thanks for your help! Arden Nance [facility] Physician's Response(s): Gastric ulcers Principal Diagnosis: "that condition established after study, to be chiefly responsible for occasioning the admission of the patient to the hospital for care." Co-Existing Principal Diagnosis: "when two or more diagnoses equally meet the criteria for principal diagnosis as determined by the circumstances of admission, diagnostic work up, and/or therapy provided, and the Alphabetic Index, Tabular List, or another coding guideline does not provide sequencing direction, any one of the diagnoses may be sequenced first." "When the physician has documented what appears to be a current diagnosis in the body of the record, but has not included the diagnosis in the final diagnostic statement, the physician should be asked whether the diagnosis should be added." (Source Coding Clinic 2 QTR90. p3-4) [facility]
== END 2023-09-04 15:13 | disposition home or self-care (01) | DRG 378 ==
LOC: ED 12:10 → EDINP 16:28 → SUATTDRO 16:28 → 2N 21:31